=== PATIENT | female | born 1940 | race African-American/Black ===

== ENCOUNTER 2020-09-24 09:42 | Emergency (ER) | payer MEDICARE, MEDICAID ==
[~2020-09-24] VITALS: Ht 167.6 cm; Wt 101.2 kg
[~2020-09-24 09:42] MED LIST: ALBU18HF2 IH; ALLO100T PO; AMI2 PO; APIX2.5T PO; BUDE6HFA INH; FURO40TA5 PO; HYDR-459 PO; LACT1CAP77 PO; LEVO112T7 MT; METR-167 PO; MIDO5TAB4 PO; OXYC-100 MT; PANT40TA51 MT; SEVE800T25 PO; VANJ5 PO
[2020-09-24] MEDS ORDERED: HYDROCODONE/ACETAMINOPHEN 5/325MG TABLET PO ONE (10:45)
[2020-09-24] MEDS ORDERED: KETOROLAC 60MG/2ML VIAL IM ONE (11:45)
[2020-09-24] MEDS ORDERED: ACET650T37 MT (12:19)
[2020-09-24 15:45] LABS: CHLORIDE 105 mEq/L (98-107); HEMOGLOBIN. 11.5 g/dL (12.0-16.0); MEAN CORPUSCULAR HEMOGLOBIN 28.7 pg (28.0-32.0); MEAN CORPUSCULAR VOLUME 82.6 fL (81.0-99.0); MEAN PLATELET VOLUME 8.3 fl (7.4-10.4); PLATELET 229 x1000/uL (130-400)
[2020-09-24 16:07] LABS: PLATELET ESTIMATE NORMAL
[2020-09-24 20:58] VITALS: BP 135/63
== END 2020-09-24 21:10 | disposition short-term general hospital (02) ==
LOC: ER 09:42 → CANBEDREQ 21:26
DX: S83.91XA Sprain of unspecified site of right knee, initial encounter (principal); W05.0XXA Fall from non-moving wheelchair, initial encounter; Y93.89 Activity, other specified; Y92.9 Unspecified place or not applicable; R94.31 Abnormal electrocardiogram [ECG] [EKG]; Z73.6 Limitation of activities due to disability; I12.9 Hypertensive chronic kidney disease with stage 1 through stage 4 chronic kidney disease, or unspecified chronic kidney disease; E11.22 Type 2 diabetes mellitus with diabetic chronic kidney disease; N18.9 Chronic kidney disease, unspecified; J45.909 Unspecified asthma, uncomplicated
CPT/HCPCS: 36415; 71045; 73562; 80053; 82962; 85025; 93005; 96372; 99283; J1885

== ENCOUNTER 2020-11-29 13:11 | Inpatient (IN) | payer MEDICARE, MEDICAID ==
[~2020-11-29] VITALS: Ht 167.6 cm; Wt 108.9 kg
[~2020-11-29 13:11] MED LIST changes: +ACET650T37 MT
[2020-11-29 16:27] LABS: BASOPHILS % 2.7 % (0.0-2.0); EOSINOPHILS % 10.5 % (0.0-5.0); HEMATOCRIT. 35.5 % (36.0-48.0); HEMOGLOBIN. 11.7 g/dL (12.0-16.0); LYMPHOCYTES % 21.3 % (20.0-50.0); MEAN CORPUSCULAR HEMOGLOBIN 29.4 pg (28.0-32.0); MEAN CORPUSCULAR VOLUME 89.3 fL (81.0-99.0); MEAN PLATELET VOLUME 8.1 fl (7.4-10.4); MONOCYTES % 11.2 % (2.0-8.0); NEUTROPHILS % 54.3 % (40.0-76.0); PLATELET 252 x1000/uL (130-400); RED BLOOD CELL COUNT 3.98 mill/uL (4.2-5.4); RED CELL DISTRIBUTION WIDTH 16.6 % (11.6-14.6)
[2020-11-29 16:32] LABS: CHLORIDE 100 mEq/L (98-107)
[2020-11-30] MEDS: HYDROCODONE/ACETAMINOPHEN 5/325MG TABLET PO PRN ×2 (01:12→18:29)
[2020-11-30] MEDS ORDERED: NALOXONE HCL 0.4MG/ML VIAL IV PRN (03:45)
[2020-11-30] MEDS ORDERED: IPRATROPIUM/ALBUTEROL 0.5-3(2.5)MG/3ML NEB HHN PRN (09:15)
[2020-11-30] MEDS ORDERED: ONDANSETRON HCL 4MG/2ML INJ IV PRN (09:15)
[2020-11-30] MEDS ORDERED: CLONIDINE 0.1MG TABLET PO PRN (09:15)
[2020-11-30] MEDS ORDERED: DIPHENHYDRAMINE 50MG/ML VIAL IV PRN (09:15)
[2020-11-30] MEDS ORDERED: ACETAMINOPHEN 325MG TABLET PO PRN (09:15)
[2020-11-30 18:00] VITALS: BP 133/67
[2020-11-30 20:00] VITALS: BP 122/68
[2020-11-30] MEDS ORDERED: PNEUMOCOCCAL 23-VAL P-SAC VAC 0.5 ML IM ONE (21:00)
[2020-12-01] VITALS: BP 110/69
[2020-12-01] MEDS ORDERED: HEPARIN SODIUM 1,000 UNIT/1ML VIAL IV NR (01:30)
[2020-12-01 01:57] LABS: HEPATITIS B SURFACE ANTIGEN NEGATIVE
[2020-12-01 02:27] LABS: HEPATITIS A AB IGM NEGATIVE (NEGATIVE)
[2020-12-01 04:00] VITALS: BP 95/48
[2020-12-01 07:32] LABS: BASOPHILS % 1.3 % (0.0-2.0); EOSINOPHILS % 11.7 % (0.0-5.0); HEMATOCRIT. 39.3 % (36.0-48.0); LYMPHOCYTES % 29.6 % (20.0-50.0); MEAN CORPUSCULAR HEMOGLOBIN 29.1 pg (28.0-32.0); MEAN CORPUSCULAR VOLUME 88.4 fL (81.0-99.0); MONOCYTES % 10.5 % (2.0-8.0); NEUTROPHILS % 46.9 % (40.0-76.0); PLATELET 247 x1000/uL (130-400); RED BLOOD CELL COUNT 4.45 mill/uL (4.2-5.4); RED CELL DISTRIBUTION WIDTH 16.5 % (11.6-14.6)
[2020-12-01 07:55] LABS: CHLORIDE 104 mEq/L (98-107)
[2020-12-01 08:00] VITALS: BP 99/53
[2020-12-01 08:04] LABS: LDL CHOLESTEROL 92 mg/dL (5-100)
[2020-12-01 08:05] LABS: HDL CHOLESTEROL 84 mg/dL (40-59)
[2020-12-01 12:00] VITALS: BP 95/52
[2020-12-01 16:00] VITALS: BP 105/53
[2020-12-01 20:17] VITALS: BP 106/54
[2020-12-01] MEDS: HYDROCODONE/ACETAMINOPHEN 5/325MG TABLET PO PRN (20:31)
[2020-12-02] VITALS (7 sets, daily range): BP systolic 104–157; BP diastolic 51–81
[2020-12-02 05:53] LABS: BASOPHILS % 1.5 % (0.0-2.0); EOSINOPHILS % 14.6 % (0.0-5.0); HEMATOCRIT. 34.9 % (36.0-48.0); HEMOGLOBIN. 11.2 g/dL (12.0-16.0); LYMPHOCYTES % 47.3 % (20.0-50.0); MEAN CORPUSCULAR HEMOGLOBIN 28.9 pg (28.0-32.0); MEAN CORPUSCULAR VOLUME 90.3 fL (81.0-99.0); MEAN PLATELET VOLUME 8.5 fl (7.4-10.4); NEUTROPHILS % 24.6 % (40.0-76.0); PLATELET 256 x1000/uL (130-400); RED BLOOD CELL COUNT 3.86 mill/uL (4.2-5.4)
[2020-12-02] MEDS: HYDROCODONE/ACETAMINOPHEN 5/325MG TABLET PO PRN ×2 (06:09→18:39)
[2020-12-03] VITALS: BP 119/64
[2020-12-03 04:00] VITALS: BP 159/78
[2020-12-03] MEDS: HYDROCODONE/ACETAMINOPHEN 5/325MG TABLET PO PRN ×2 (04:16→14:52)
[2020-12-03 08:00] VITALS: BP 116/91
[2020-12-03 12:00] VITALS: BP 114/60
[2020-12-03 14:52] VITALS: BP 116/91
== END 2020-12-03 15:40 | disposition home or self-care (01) | DRG 205 ==
LOC: ER 13:28 → EDBEDREQ 19:57 → MICUSO 22:07 → 8WST 11-30 16:30
PROVIDERS: ADMIT Internal Medicine; ATTEND Internal Medicine
PROC: 5A1D70Z Performance of Urinary Filtration, Intermittent, Less than 6 Hours Per Day (ICD-10-PCS; principal; 2020-11-30)
PROC: 5A1D70Z Performance of Urinary Filtration, Intermittent, Less than 6 Hours Per Day (ICD-10-PCS; 2020-12-02)
DX: M94.0 Chondrocostal junction syndrome [Tietze] (principal); N18.6 End stage renal disease; L89.323 Pressure ulcer of left buttock, stage 3; E87.1 Hypo-osmolality and hyponatremia; L97.909 Non-pressure chronic ulcer of unspecified part of unspecified lower leg with unspecified severity; I12.0 Hypertensive chronic kidney disease with stage 5 chronic kidney disease or end stage renal disease; R07.89 Other chest pain; D64.9 Anemia, unspecified; J45.909 Unspecified asthma, uncomplicated; Z90.49 Acquired absence of other specified parts of digestive tract; Z99.2 Dependence on renal dialysis; Z86.19 Personal history of other infectious and parasitic diseases; Z79.51 Long term (current) use of inhaled steroids
CPT/HCPCS: 36415; 71045; 80048; 80053; 80061; 82040; 83880; 84132; 84134; 84443; 84484; 85025; 86705; 86709; 86803; 87340; 90732; 93005; 93306; 93970; 99285; J1644

== ENCOUNTER 2021-01-26 04:51 | Inpatient (IN) | payer MEDICARE, MEDICAID ==
[~2021-01-26] VITALS: Ht 167.6 cm; Wt 117.5 kg
[~2021-01-26 04:51] MED LIST changes: -METR-167 PO; -VANJ5 PO
[2021-01-26 05:40] LABS: EOSINOPHILS % 7.6 % (0.0-5.0); HEMATOCRIT. 33.7 % (36.0-48.0); LYMPHOCYTES % 27.7 % (20.0-50.0); MEAN CORPUSCULAR HEMOGLOBIN 28.5 pg (28.0-32.0); MEAN CORPUSCULAR VOLUME 87.3 fL (81.0-99.0); MEAN PLATELET VOLUME 7.2 fl (7.4-10.4); MONOCYTES % 11.4 % (2.0-8.0); NEUTROPHILS % 52.3 % (40.0-76.0); PLATELET 274 x1000/uL (130-400); RED BLOOD CELL COUNT 3.86 mill/uL (4.2-5.4)
[2021-01-26 05:46] LABS: CHLORIDE 97 mEq/L (98-107)
[2021-01-26 06:50] LABS: CLARITY URINE TURBID (CLEAR); COLOR URINE YELLOW (YELLOW); KETONES URINE TRACE (NEGATIVE); LEUKOCYTE ESTERASE URINE 3+ (NEGATIVE); NITRITE URINE NEGATIVE (NEGATIVE); OCCULT BLOOD URINE 2+ (NEGATIVE); PH URINE 5.5 (4.5-8.0); PROTEIN URINE 3+ (NEGATIVE); SPECIFIC GRAVITY URINE 1.015 (1.005-1.030); UROBILINOGEN URINE 0.2 E.U./dL (0.2-1.0)
[2021-01-26] MEDS ORDERED: CEFTRIAXONE 1 G PREMIX 50 ML IV ONE (08:00)
[2021-01-26] MEDS ORDERED: ACETAMINOPHEN 325MG TABLET PO PRN ×2 (13:00)
[2021-01-26] MEDS ORDERED: ONDANSETRON HCL 4MG/2ML INJ IV PRN (13:00)
[2021-01-26] MEDS: SEVELAMER CARBONATE 800 MG TABLET PO SCH ×4 (13:00→18:12)
[2021-01-26] MEDS: MIDODRINE HCL 5MG TABLET PO SCH ×3 (13:00→18:12)
[2021-01-26] MEDS ORDERED: CLONIDINE 0.1MG TABLET PO PRN (13:00)
[2021-01-26] MEDS ORDERED: LORAZEPAM 0.5MG TABLET PO PRN (13:00)
[2021-01-26 13:39] LABS: HEPATITIS B SURFACE ANTIGEN NEGATIVE
[2021-01-26] MEDS: HYDROCODONE/ACETAMINOPHEN 5/325MG TABLET PO PRN ×2 (14:56→20:44)
[2021-01-26] MEDS: AMIODARONE HCL 200 MG TABLET PO SCH (14:58)
[2021-01-26] MEDS: LEVOTHYROXINE SODIUM 112MCG TABLET PO SCH (14:58)
[2021-01-26 17:10] VITALS: BP 124/61
[2021-01-26 17:30] VITALS: BP 124/61
[2021-01-26] MEDS: ALLOPURINOL 100 MG TABLET PO SCH (18:13)
[2021-01-26] MEDS: FUROSEMIDE 40MG TABLET PO SCH (18:13)
[2021-01-26 19:30] VITALS: BP 124/61
[2021-01-26 20:00] VITALS: BP 141/66
[2021-01-26] MEDS: APIXABAN 2.5 MG TABLET PO SCH (20:21)
[2021-01-27] VITALS: BP 120/74
[2021-01-27 04:00] VITALS: BP 143/74
[2021-01-27] MEDS: IPRATROPIUM/ALBUTEROL 0.5-3(2.5)MG/3ML NEB HHN PRN (04:22)
[2021-01-27] MEDS: FUROSEMIDE 40MG TABLET PO SCH ×2 (06:52→17:57)
[2021-01-27] MEDS: SEVELAMER CARBONATE 800 MG TABLET PO SCH ×3 (06:52→17:57)
[2021-01-27] MEDS: PANTOPRAZOLE 40MG DR TABLET PO SCH (06:52)
[2021-01-27] MEDS: LEVOTHYROXINE SODIUM 112MCG TABLET PO SCH (06:52)
[2021-01-27 08:00] VITALS: BP 114/45
[2021-01-27] MEDS: MIDODRINE HCL 5MG TABLET PO SCH ×3 (09:00→17:53)
[2021-01-27] MEDS: LACTOBACILLUS GG CAPSULE PO SCH (09:00)
[2021-01-27] MEDS: ALLOPURINOL 100 MG TABLET PO SCH ×2 (10:12→17:52)
[2021-01-27] MEDS: APIXABAN 2.5 MG TABLET PO SCH ×2 (10:12→19:57)
[2021-01-27] MEDS: AMIODARONE HCL 200 MG TABLET PO SCH (10:13)
[2021-01-27 12:00] VITALS: BP 110/55
[2021-01-27] MEDS: HYDROCODONE/ACETAMINOPHEN 5/325MG TABLET PO PRN ×2 (15:03→20:01)
[2021-01-27 16:00] VITALS: BP 118/53
[2021-01-27 20:00] VITALS: BP 124/65
[2021-01-28] VITALS: BP 119/59
[2021-01-28 04:00] VITALS: BP 104/56
[2021-01-28] MEDS: HYDROCODONE/ACETAMINOPHEN 5/325MG TABLET PO PRN ×3 (05:14→18:09)
[2021-01-28] MEDS: SEVELAMER CARBONATE 800 MG TABLET PO SCH ×3 (06:35→17:51)
[2021-01-28] MEDS: PANTOPRAZOLE 40MG DR TABLET PO SCH (06:35)
[2021-01-28] MEDS: FUROSEMIDE 40MG TABLET PO SCH ×2 (06:35→17:51)
[2021-01-28] MEDS: LEVOTHYROXINE SODIUM 112MCG TABLET PO SCH (06:35)
[2021-01-28 08:00] VITALS: BP 130/60
[2021-01-28] MEDS: MIDODRINE HCL 5MG TABLET PO SCH ×3 (09:00→17:00)
[2021-01-28] MEDS: LACTOBACILLUS GG CAPSULE PO SCH (09:00)
[2021-01-28] MEDS: APIXABAN 2.5 MG TABLET PO SCH ×2 (09:19→21:00)
[2021-01-28] MEDS: AMIODARONE HCL 200 MG TABLET PO SCH (09:19)
[2021-01-28] MEDS: ALLOPURINOL 100 MG TABLET PO SCH ×2 (09:19→17:51)
[2021-01-28 12:00] VITALS: BP 112/56
[2021-01-28] MEDS ORDERED: DEXTROSE 50% WATER 50ML SYRINGE IV PRN (13:30)
[2021-01-28 16:00] VITALS: BP 121/57
[2021-01-28] MEDS: INSULIN LISPRO 100 UNITS/ML SUBCUT SCH ×2 (17:40→21:00)
[2021-01-28] MEDS: BLOOD SUGAR DIAGNOSTIC STRIP TEST SCH ×2 (18:02→21:00)
[2021-01-28 20:00] VITALS: BP 143/72
[2021-01-29] VITALS (8 sets, daily range): BP systolic 100–176; BP diastolic 44–73
[2021-01-29 06:49] LABS: BASOPHILS % 1.1 % (0.0-2.0); EOSINOPHILS % 8.8 % (0.0-5.0); HEMATOCRIT. 31.1 % (36.0-48.0); HEMOGLOBIN. 10.3 g/dL (12.0-16.0); LYMPHOCYTES % 29.2 % (20.0-50.0); MEAN CORPUSCULAR HEMOGLOBIN 28.7 pg (28.0-32.0); MEAN CORPUSCULAR VOLUME 86.7 fL (81.0-99.0); MONOCYTES % 12.5 % (2.0-8.0); NEUTROPHILS % 48.4 % (40.0-76.0); PLATELET 281 x1000/uL (130-400); RED BLOOD CELL COUNT 3.59 mill/uL (4.2-5.4)
[2021-01-29] MEDS: FUROSEMIDE 40MG TABLET PO SCH ×2 (06:54→17:55)
[2021-01-29] MEDS: LEVOTHYROXINE SODIUM 112MCG TABLET PO SCH (06:54)
[2021-01-29] MEDS: HYDROXYZINE 25MG TABLET PO PRN ×2 (06:59→22:38)
[2021-01-29] MEDS: INSULIN LISPRO 100 UNITS/ML SUBCUT SCH ×4 (07:40→20:44)
[2021-01-29] MEDS: BLOOD SUGAR DIAGNOSTIC STRIP TEST SCH ×4 (07:52→20:02)
[2021-01-29] MEDS: FAMOTIDINE 20MG TABLET PO SCH (08:34)
[2021-01-29] MEDS: SEVELAMER CARBONATE 800 MG TABLET PO SCH ×3 (08:34→17:55)
[2021-01-29] MEDS: APIXABAN 2.5 MG TABLET PO SCH (08:34)
[2021-01-29] MEDS: ALLOPURINOL 100 MG TABLET PO SCH ×2 (08:34→17:55)
[2021-01-29] MEDS: MIDODRINE HCL 5MG TABLET PO SCH ×3 (08:34→17:55)
[2021-01-29] MEDS: AMIODARONE HCL 200 MG TABLET PO SCH (08:34)
[2021-01-29] MEDS: LACTOBACILLUS GG CAPSULE PO SCH (08:52)
[2021-01-29] MEDS: HYDROCODONE/ACETAMINOPHEN 5/325MG TABLET PO PRN ×2 (13:25→22:43)
[2021-01-29] MEDS: CEFAZOLIN 1000MG PREMIX 50 ML IV SCH (22:33)
[2021-01-30] VITALS: BP 122/80
[2021-01-30 04:00] VITALS: BP 100/51
[2021-01-30] MEDS: BLOOD SUGAR DIAGNOSTIC STRIP TEST SCH ×4 (04:57→21:00)
[2021-01-30] MEDS: LEVOTHYROXINE SODIUM 112MCG TABLET PO SCH (05:17)
[2021-01-30] MEDS: INSULIN LISPRO 100 UNITS/ML SUBCUT SCH ×4 (05:18→21:00)
[2021-01-30 05:35] LABS: EOSINOPHILS % 9.2 % (0.0-5.0); HEMATOCRIT. 31.9 % (36.0-48.0); HEMOGLOBIN. 10.5 g/dL (12.0-16.0); LYMPHOCYTES % 31.1 % (20.0-50.0); MEAN CORPUSCULAR HEMOGLOBIN 28.5 pg (28.0-32.0); MONOCYTES % 13.8 % (2.0-8.0); NEUTROPHILS % 43.9 % (40.0-76.0); PLATELET 261 x1000/uL (130-400); RED BLOOD CELL COUNT 3.71 mill/uL (4.2-5.4); RED CELL DISTRIBUTION WIDTH 14.9 % (11.6-14.6)
[2021-01-30 06:30] LABS: CHLORIDE 103 mEq/L (98-107)
[2021-01-30 06:48] LABS: LDL CHOLESTEROL 54 mg/dL (5-100)
[2021-01-30 06:51] LABS: HDL CHOLESTEROL 53 mg/dL (40-59)
[2021-01-30 08:00] VITALS: BP 112/58
[2021-01-30] MEDS: MIDODRINE HCL 5MG TABLET PO SCH ×3 (09:00→18:39)
[2021-01-30] MEDS: LACTOBACILLUS GG CAPSULE PO SCH (09:00)
[2021-01-30] MEDS: SEVELAMER CARBONATE 800 MG TABLET PO SCH ×3 (09:08→18:38)
[2021-01-30] MEDS: FUROSEMIDE 40MG TABLET PO SCH ×2 (09:08→18:38)
[2021-01-30] MEDS: FAMOTIDINE 20MG TABLET PO SCH (09:09)
[2021-01-30] MEDS: HYDROCODONE/ACETAMINOPHEN 5/325MG TABLET PO PRN ×2 (09:09→18:49)
[2021-01-30] MEDS: ALLOPURINOL 100 MG TABLET PO SCH ×2 (09:12→18:38)
[2021-01-30] MEDS: AMIODARONE HCL 200 MG TABLET PO SCH (09:16)
[2021-01-30 12:00] VITALS: BP 108/60
[2021-01-30 16:00] VITALS: BP 130/63
[2021-01-30] MEDS ORDERED: IOHEXOL-350 100 ML BOTTLE ONE (17:21)
[2021-01-30] MEDS: APIXABAN 2.5 MG TABLET PO SCH (18:38)
[2021-01-30] MEDS: CEFAZOLIN 1000MG PREMIX 50 ML IV SCH (18:49)
[2021-01-30 20:00] VITALS: BP 151/71
[2021-01-30] MEDS ORDERED: NALOXONE HCL 0.4MG/ML VIAL IV PRN (20:00)
[2021-01-31] VITALS: BP 119/58
[2021-01-31 04:00] VITALS: BP 125/68
[2021-01-31 07:06] LABS: BASOPHILS % 0.4 % (0.0-2.0); EOSINOPHILS % 8.8 % (0.0-5.0); HEMATOCRIT. 31.8 % (36.0-48.0); HEMOGLOBIN. 10.6 g/dL (12.0-16.0); LYMPHOCYTES % 34.7 % (20.0-50.0); MEAN CORPUSCULAR HEMOGLOBIN 28.7 pg (28.0-32.0); MEAN CORPUSCULAR VOLUME 86.4 fL (81.0-99.0); MEAN PLATELET VOLUME 7.9 fl (7.4-10.4); MONOCYTES % 12.5 % (2.0-8.0); NEUTROPHILS % 43.6 % (40.0-76.0); PLATELET 288 x1000/uL (130-400); RED BLOOD CELL COUNT 3.68 mill/uL (4.2-5.4); RED CELL DISTRIBUTION WIDTH 15.3 % (11.6-14.6)
[2021-01-31] MEDS: BLOOD SUGAR DIAGNOSTIC STRIP TEST SCH ×4 (07:20→21:00)
[2021-01-31] MEDS: INSULIN LISPRO 100 UNITS/ML SUBCUT SCH ×4 (07:50→21:00)
[2021-01-31 08:00] VITALS: BP 131/71
[2021-01-31] MEDS: FUROSEMIDE 40MG TABLET PO SCH ×2 (09:01→18:10)
[2021-01-31] MEDS: LEVOTHYROXINE SODIUM 112MCG TABLET PO SCH (09:01)
[2021-01-31] MEDS: SEVELAMER CARBONATE 800 MG TABLET PO SCH ×3 (09:02→18:11)
[2021-01-31] MEDS: HYDROCODONE/ACETAMINOPHEN 5/325MG TABLET PO PRN (09:12)
[2021-01-31] MEDS: LACTOBACILLUS GG CAPSULE PO SCH (11:37)
[2021-01-31] MEDS: AMIODARONE HCL 200 MG TABLET PO SCH (11:38)
[2021-01-31] MEDS: APIXABAN 2.5 MG TABLET PO SCH ×2 (11:38→18:09)
[2021-01-31] MEDS: FAMOTIDINE 20MG TABLET PO SCH (11:38)
[2021-01-31] MEDS: MIDODRINE HCL 5MG TABLET PO SCH ×3 (11:39→18:10)
[2021-01-31] MEDS: HYDROXYZINE 25MG TABLET PO PRN (11:40)
[2021-01-31] MEDS: ALLOPURINOL 100 MG TABLET PO SCH ×2 (11:40→18:10)
[2021-01-31 12:00] VITALS: BP 118/64
[2021-01-31 16:00] VITALS: BP 146/67
[2021-01-31] MEDS: CEFAZOLIN 1000MG PREMIX 50 ML IV SCH (18:11)
[2021-01-31] MEDS: DOCUSATE SODIUM 100MG CAPSULE PO PRN (18:12)
[2021-01-31 20:00] VITALS: BP 128/71
[2021-02-01] VITALS: BP 124/63
[2021-02-01 04:00] VITALS: BP 102/54
[2021-02-01] MEDS: HYDROCODONE/ACETAMINOPHEN 5/325MG TABLET PO PRN ×2 (05:13→14:07)
[2021-02-01] MEDS: LEVOTHYROXINE SODIUM 112MCG TABLET PO SCH (06:22)
[2021-02-01] MEDS: FUROSEMIDE 40MG TABLET PO SCH ×2 (06:23→17:05)
[2021-02-01] MEDS: BLOOD SUGAR DIAGNOSTIC STRIP TEST SCH ×4 (06:27→20:58)
[2021-02-01 07:25] LABS: BASOPHILS % 0.7 % (0.0-2.0); EOSINOPHILS % 8.7 % (0.0-5.0); HEMATOCRIT. 33.5 % (36.0-48.0); LYMPHOCYTES % 30.4 % (20.0-50.0); MEAN CORPUSCULAR HEMOGLOBIN 28.5 pg (28.0-32.0); MEAN CORPUSCULAR VOLUME 86.7 fL (81.0-99.0); MONOCYTES % 12.9 % (2.0-8.0); NEUTROPHILS % 47.3 % (40.0-76.0); PLATELET 251 x1000/uL (130-400); RED BLOOD CELL COUNT 3.86 mill/uL (4.2-5.4); RED CELL DISTRIBUTION WIDTH 15.6 % (11.6-14.6)
[2021-02-01] MEDS: INSULIN LISPRO 100 UNITS/ML SUBCUT SCH ×4 (07:50→20:58)
[2021-02-01 08:02] VITALS: BP 120/52
[2021-02-01] MEDS: AMIODARONE HCL 200 MG TABLET PO SCH (08:18)
[2021-02-01] MEDS: FAMOTIDINE 20MG TABLET PO SCH (08:18)
[2021-02-01] MEDS: LACTOBACILLUS GG CAPSULE PO SCH (08:18)
[2021-02-01] MEDS: APIXABAN 2.5 MG TABLET PO SCH ×2 (08:18→17:02)
[2021-02-01] MEDS: MIDODRINE HCL 5MG TABLET PO SCH ×3 (08:19→17:05)
[2021-02-01] MEDS: ALLOPURINOL 100 MG TABLET PO SCH ×2 (08:19→17:05)
[2021-02-01] MEDS: DOCUSATE SODIUM 100MG CAPSULE PO PRN ×2 (08:20→14:05)
[2021-02-01] MEDS: SEVELAMER CARBONATE 800 MG TABLET PO SCH ×3 (09:59→18:31)
[2021-02-01] MEDS ORDERED: LORATADINE 10MG TABLET PO PRN (10:15)
[2021-02-01] MEDS: IPRATROPIUM/ALBUTEROL 0.5-3(2.5)MG/3ML NEB HHN PRN (10:36)
[2021-02-01 11:43] VITALS: BP 133/52
[2021-02-01 16:06] VITALS: BP 121/52
[2021-02-01] MEDS: CEFAZOLIN 1000MG PREMIX 50 ML IV SCH (17:06)
[2021-02-01 20:00] VITALS: BP 144/66
[2021-02-02] VITALS: BP 154/65
[2021-02-02 04:00] VITALS: BP 133/70
[2021-02-02 04:51] LABS: BASOPHILS % 1.3 % (0.0-2.0); EOSINOPHILS % 9.3 % (0.0-5.0); HEMATOCRIT. 35.7 % (36.0-48.0); HEMOGLOBIN. 11.7 g/dL (12.0-16.0); LYMPHOCYTES % 31.6 % (20.0-50.0); MEAN CORPUSCULAR HEMOGLOBIN 28.6 pg (28.0-32.0); MONOCYTES % 11.5 % (2.0-8.0); NEUTROPHILS % 46.3 % (40.0-76.0); RED CELL DISTRIBUTION WIDTH 15.8 % (11.6-14.6)
[2021-02-02] MEDS: HYDROCODONE/ACETAMINOPHEN 5/325MG TABLET PO PRN ×2 (04:55→15:45)
[2021-02-02] MEDS: FUROSEMIDE 40MG TABLET PO SCH (06:29)
[2021-02-02] MEDS: LEVOTHYROXINE SODIUM 112MCG TABLET PO SCH (06:29)
[2021-02-02] MEDS: BLOOD SUGAR DIAGNOSTIC STRIP TEST SCH ×3 (07:20→17:20)
[2021-02-02] MEDS: INSULIN LISPRO 100 UNITS/ML SUBCUT SCH ×3 (07:50→17:50)
[2021-02-02 08:00] VITALS: BP 129/59
[2021-02-02] MEDS: SEVELAMER CARBONATE 800 MG TABLET PO SCH ×3 (08:50→18:00)
[2021-02-02] MEDS: LACTOBACILLUS GG CAPSULE PO SCH (08:50)
[2021-02-02] MEDS: APIXABAN 2.5 MG TABLET PO SCH ×2 (08:50→18:00)
[2021-02-02] MEDS: AMIODARONE HCL 200 MG TABLET PO SCH (08:51)
[2021-02-02] MEDS: FAMOTIDINE 20MG TABLET PO SCH (08:51)
[2021-02-02] MEDS: ALLOPURINOL 100 MG TABLET PO SCH ×2 (08:52→18:00)
[2021-02-02] MEDS: MIDODRINE HCL 5MG TABLET PO SCH ×3 (08:52→18:00)
[2021-02-02] MEDS: DOCUSATE SODIUM 100MG CAPSULE PO PRN (08:52)
[2021-02-02 10:41] LABS: CHLORIDE 102 mEq/L (98-107)
[2021-02-02 12:09] VITALS: BP 159/75
[2021-02-02] MEDS ORDERED: HEPARIN SODIUM 1,000 UNIT/1ML VIAL IV SCH (13:00)
[2021-02-02 16:00] VITALS: BP 110/61
[2021-02-02 17:07] LABS: MEAN PLATELET VOLUME 8.2 fl (7.4-10.4); PLATELET 280 x1000/uL (130-400)
[2021-02-02] MEDS: CEFAZOLIN 1000MG PREMIX 50 ML IV SCH (18:00)
[2021-02-02 18:35] VITALS: BP 110/61
== END 2021-02-02 20:09 | disposition home health service (06) | DRG 638 ==
LOC: ER 04:51 → 8WST 10:56 → EDBEDREQTM 11:01 → EDBEDREQ 11:01 → ENRESERV 16:40 → 6EST 01-30 11:25
PROVIDERS: ADMIT Internal Medicine; ATTEND Internal Medicine
PROC: 5A1D70Z Performance of Urinary Filtration, Intermittent, Less than 6 Hours Per Day (ICD-10-PCS; principal; 2021-01-27)
PROC: 5A1D70Z Performance of Urinary Filtration, Intermittent, Less than 6 Hours Per Day (ICD-10-PCS; 2021-01-29)
PROC: 5A1D70Z Performance of Urinary Filtration, Intermittent, Less than 6 Hours Per Day (ICD-10-PCS; 2021-01-30)
PROC: 5A1D70Z Performance of Urinary Filtration, Intermittent, Less than 6 Hours Per Day (ICD-10-PCS; 2021-02-02)
DX: E11.621 Type 2 diabetes mellitus with foot ulcer (principal); I12.0 Hypertensive chronic kidney disease with stage 5 chronic kidney disease or end stage renal disease; E44.0 Moderate protein-calorie malnutrition; Z68.41 Body mass index [BMI] 40.0-44.9, adult; N39.0 Urinary tract infection, site not specified; I31.3 Pericardial effusion (noninflammatory); D64.9 Anemia, unspecified; D72.10 Eosinophilia, unspecified; E03.9 Hypothyroidism, unspecified; E11.22 Type 2 diabetes mellitus with diabetic chronic kidney disease; N18.6 End stage renal disease; J45.909 Unspecified asthma, uncomplicated; B96.1 Klebsiella pneumoniae [K. pneumoniae] as the cause of diseases classified elsewhere; I87.2 Venous insufficiency (chronic) (peripheral); E11.51 Type 2 diabetes mellitus with diabetic peripheral angiopathy without gangrene; E78.5 Hyperlipidemia, unspecified; I08.1 Rheumatic disorders of both mitral and tricuspid valves; I48.0 Paroxysmal atrial fibrillation; E87.5 Hyperkalemia; M62.50 Muscle wasting and atrophy, not elsewhere classified, unspecified site; E66.01 Morbid (severe) obesity due to excess calories; L97.529 Non-pressure chronic ulcer of other part of left foot with unspecified severity; L97.519 Non-pressure chronic ulcer of other part of right foot with unspecified severity; I70.245 Atherosclerosis of native arteries of left leg with ulceration of other part of foot; I25.2 Old myocardial infarction; Z99.2 Dependence on renal dialysis; Z79.899 Other long term (current) drug therapy; Z79.01 Long term (current) use of anticoagulants; Z90.49 Acquired absence of other specified parts of digestive tract; Z79.51 Long term (current) use of inhaled steroids
CPT/HCPCS: 36415; 71045; 75635; 80048; 80053; 80061; 80076; 81003; 82962; 83735; 84439; 84443; 84481; 84484; 85025; 86705; 86709; 86803; 87077; 87186; 87340; 93005; 94640; 97162; 99285; J0690; J0696; J7040; Q9967

== ENCOUNTER 2021-02-20 11:07 | Inpatient (IN) | payer MEDICARE, MEDICAID ==
[~2021-02-20] VITALS: Ht 167.6 cm; Wt 116.6 kg
[~2021-02-20 11:07] MED LIST changes: -FURO40TA5 PO
[2021-02-20] MEDS ORDERED: CLINDAMYCIN 600 MG in DEXTROSE 5% WATER 50 ML IV ONE (12:00)
[2021-02-20 12:14] LABS: BASOPHILS % 0.7 % (0.0-2.0); EOSINOPHILS % 8.1 % (0.0-5.0); HEMATOCRIT. 38.7 % (36.0-48.0); HEMOGLOBIN. 12.3 g/dL (12.0-16.0); LYMPHOCYTES % 25.8 % (20.0-50.0); MEAN CORPUSCULAR HEMOGLOBIN 28.1 pg (28.0-32.0); MEAN CORPUSCULAR VOLUME 88.6 fL (81.0-99.0); MEAN PLATELET VOLUME 7.1 fl (7.4-10.4); MONOCYTES % 12.1 % (2.0-8.0); NEUTROPHILS % 53.3 % (40.0-76.0); PLATELET 267 x1000/uL (130-400); RED BLOOD CELL COUNT 4.37 mill/uL (4.2-5.4)
[2021-02-20] MEDS ORDERED: CLINDAMYCIN 600MG PREMIX 50 ML IV SCH (12:15)
[2021-02-20 12:20] LABS: CHLORIDE 95 mEq/L (98-107)
[2021-02-20 12:31] LABS: BG BASE EXCESS 3.1 mmol/L (-2.0-2.0); BG CARBOXYHEMOGLOBIN 1.3 % (0.5-1.5); BG DEOXYHEMOGLOBIN 3.3 % (0.0-5.0); BG FRACTION INSPIRED OXYGEN 21; BG HCO3 ACT 27.8 mmol/L (22.0-26.0); BG METHEMOGLOBIN 0.3 % (0.0-1.5); BG OXYGEN SATURATION 96.6 % (92.0-98.5); BG OXYHEMOGLOBIN 95.1 % (94.0-97.0); BG PH 7.429 (7.350-7.450); BG SAMPLE SITE RIGHT RADIAL; BG TOTAL HEMOGLOBIN 11.9 g/dL (12.0-18.0); BG VENT MODE ROOM AIR
[2021-02-20 15:15] VITALS: BP 120/63
[2021-02-20] MEDS ORDERED: MORPHINE SULFATE 4 MG/ML CPJ (NOT FOR IM USE) IV ONE (16:00)
[2021-02-20 20:00] VITALS: BP 99/54
[2021-02-20] MEDS ORDERED: VANCOMYCIN 2,000 MG in DEXT 5% WATER 500 ML IV SCH (20:00)
[2021-02-20] MEDS: PIPERACILLIN/TAZOBACTAM 3.375 G in DEXTROSE 5% WATER 50 ML IV SCH (21:00)
[2021-02-20] MEDS ORDERED: SODIUM POLYSTYRENE SULFONATE 15 G/60 ML BOT PO SCH (21:00)
[2021-02-20] MEDS ORDERED: DEXTROSE 50% WATER 50ML SYRINGE IV PRN (22:30)
[2021-02-20] MEDS ORDERED: ALBUTEROL (0.083%) 2.5MG/3ML NEB HHN PRN (22:45)
[2021-02-21] VITALS (7 sets, daily range): BP systolic 99–127; BP diastolic 49–62
[2021-02-21] MEDS: OXYCODONE HCL/ACETAMINOPHEN 5/325MG TABLET PO PRN (01:13)
[2021-02-21] MEDS: PANTOPRAZOLE 40MG DR TABLET PO SCH (06:54)
[2021-02-21] MEDS: BLOOD SUGAR DIAGNOSTIC STRIP TEST SCH ×4 (06:55→20:40)
[2021-02-21] MEDS: LEVOTHYROXINE SODIUM 112MCG TABLET PO SCH (06:55)
[2021-02-21] MEDS: INSULIN LISPRO 100 UNITS/ML SUBCUT SCH ×4 (07:07→20:38)
[2021-02-21] MEDS: AMIODARONE HCL 200 MG TABLET PO SCH (09:43)
[2021-02-21] MEDS: ALLOPURINOL 100 MG TABLET PO SCH (09:43)
[2021-02-21] MEDS: PIPERACILLIN/TAZOBACTAM 3.375 G in DEXTROSE 5% WATER 50 ML IV SCH ×2 (09:44→20:40)
[2021-02-21] MEDS: ACETAMINOPHEN 325MG TABLET PO PRN (09:44)
[2021-02-21] MEDS: APIXABAN 2.5 MG TABLET PO SCH ×2 (09:44→17:31)
[2021-02-21] MEDS: SEVELAMER CARBONATE 800 MG TABLET PO SCH ×2 (12:59→17:32)
[2021-02-21] MEDS ORDERED: NALOXONE HCL 0.4MG/ML VIAL IV PRN (13:30)
[2021-02-21 17:54] LABS: HEPATITIS B SURFACE ANTIGEN NEGATIVE
[2021-02-22] VITALS: BP 132/56
[2021-02-22 04:00] VITALS: BP_SYST 100; BP_SYST 96; BP_DIAS 49; BP_DIAS 55
[2021-02-22] MEDS: OXYCODONE HCL/ACETAMINOPHEN 5/325MG TABLET PO PRN ×2 (05:01→21:35)
[2021-02-22] MEDS: PANTOPRAZOLE 40MG DR TABLET PO SCH (06:26)
[2021-02-22] MEDS: BLOOD SUGAR DIAGNOSTIC STRIP TEST SCH ×4 (06:26→21:00)
[2021-02-22] MEDS: LEVOTHYROXINE SODIUM 112MCG TABLET PO SCH (06:26)
[2021-02-22] MEDS: INSULIN LISPRO 100 UNITS/ML SUBCUT SCH ×4 (06:30→21:00)
[2021-02-22 08:00] VITALS: BP 102/43
[2021-02-22] MEDS: AMIODARONE HCL 200 MG TABLET PO SCH (09:00)
[2021-02-22] MEDS: SEVELAMER CARBONATE 800 MG TABLET PO SCH ×2 (09:00→17:28)
[2021-02-22] MEDS: ALLOPURINOL 100 MG TABLET PO SCH (09:01)
[2021-02-22] MEDS: PIPERACILLIN/TAZOBACTAM 3.375 G in DEXTROSE 5% WATER 50 ML IV SCH ×2 (09:01→21:33)
[2021-02-22] MEDS: APIXABAN 2.5 MG TABLET PO SCH ×2 (09:02→17:29)
[2021-02-22] MEDS: ACETAMINOPHEN 325MG TABLET PO PRN ×2 (09:08→17:04)
[2021-02-22 10:09] LABS: BASOPHILS % 0.5 % (0.0-2.0); EOSINOPHILS % 10.6 % (0.0-5.0); HEMATOCRIT. 33.2 % (36.0-48.0); HEMOGLOBIN. 10.5 g/dL (12.0-16.0); LYMPHOCYTES % 27.9 % (20.0-50.0); MEAN CORPUSCULAR HEMOGLOBIN 27.7 pg (28.0-32.0); MEAN CORPUSCULAR VOLUME 87.1 fL (81.0-99.0); MEAN PLATELET VOLUME 7.4 fl (7.4-10.4); MONOCYTES % 13.1 % (2.0-8.0); NEUTROPHILS % 47.9 % (40.0-76.0); PLATELET 238 x1000/uL (130-400); RED BLOOD CELL COUNT 3.81 mill/uL (4.2-5.4); RED CELL DISTRIBUTION WIDTH 16.8 % (11.6-14.6)
[2021-02-22 12:00] VITALS: BP 94/44
[2021-02-22 16:00] VITALS: BP 96/54
[2021-02-22 20:00] VITALS: BP 108/54
[2021-02-23 00:05] VITALS: BP 114/55
[2021-02-23 04:00] VITALS: BP 97/59
[2021-02-23] MEDS: LEVOTHYROXINE SODIUM 112MCG TABLET PO SCH (06:45)
[2021-02-23] MEDS: BLOOD SUGAR DIAGNOSTIC STRIP TEST SCH ×4 (06:45→20:44)
[2021-02-23] MEDS: ACETAMINOPHEN 325MG TABLET PO PRN ×2 (06:56→16:12)
[2021-02-23 07:17] LABS: EOSINOPHILS % 13.2 % (0.0-5.0); HEMATOCRIT. 32.6 % (36.0-48.0); HEMOGLOBIN. 10.5 g/dL (12.0-16.0); LYMPHOCYTES % 38.6 % (20.0-50.0); MEAN CORPUSCULAR HEMOGLOBIN 28.1 pg (28.0-32.0); MEAN CORPUSCULAR VOLUME 86.9 fL (81.0-99.0); MEAN PLATELET VOLUME 7.4 fl (7.4-10.4); MONOCYTES % 13.8 % (2.0-8.0); NEUTROPHILS % 33.4 % (40.0-76.0); PLATELET 236 x1000/uL (130-400); RED BLOOD CELL COUNT 3.75 mill/uL (4.2-5.4); RED CELL DISTRIBUTION WIDTH 16.2 % (11.6-14.6)
[2021-02-23] MEDS: INSULIN LISPRO 100 UNITS/ML SUBCUT SCH ×4 (07:50→20:44)
[2021-02-23 08:00] VITALS: BP 98/47
[2021-02-23] MEDS: PIPERACILLIN/TAZOBACTAM 3.375 G in DEXTROSE 5% WATER 50 ML IV SCH ×2 (08:44→20:44)
[2021-02-23] MEDS: APIXABAN 2.5 MG TABLET PO SCH ×2 (08:44→17:56)
[2021-02-23] MEDS: ALLOPURINOL 100 MG TABLET PO SCH (08:44)
[2021-02-23] MEDS: FAMOTIDINE 20MG TABLET PO SCH (08:44)
[2021-02-23] MEDS: SEVELAMER CARBONATE 800 MG TABLET PO SCH ×2 (08:44→17:56)
[2021-02-23] MEDS: AMIODARONE HCL 200 MG TABLET PO SCH (08:45)
[2021-02-23 12:00] VITALS: BP 102/60
[2021-02-23] MEDS: OXYCODONE HCL/ACETAMINOPHEN 5/325MG TABLET PO PRN ×2 (12:36→23:51)
[2021-02-23 16:00] VITALS: BP 111/64
[2021-02-23] MEDS ORDERED: PROT40 PO (16:33)
[2021-02-23] MEDS ORDERED: FURO-152 PO (16:33)
[2021-02-23] MEDS ORDERED: IBUP-2437 PO (16:33)
[2021-02-23] MEDS ORDERED: TOPUD MT (16:33)
[2021-02-23] MEDS ORDERED: ALBU6.7H9 INH (16:33)
[2021-02-23] MEDS ORDERED: LEVO100T9 PO (16:33)
[2021-02-23] MEDS ORDERED: SEVE800T8 PO (16:33)
[2021-02-23 20:00] VITALS: BP 104/49
[2021-02-24] VITALS (7 sets, daily range): BP systolic 100–129; BP diastolic 48–71
[2021-02-24] MEDS: LEVOTHYROXINE SODIUM 112MCG TABLET PO SCH (06:43)
[2021-02-24 07:02] LABS: BASOPHILS % 0.8 % (0.0-2.0); EOSINOPHILS % 12.6 % (0.0-5.0); HEMATOCRIT. 32.5 % (36.0-48.0); HEMOGLOBIN. 10.6 g/dL (12.0-16.0); LYMPHOCYTES % 35.6 % (20.0-50.0); MEAN CORPUSCULAR HEMOGLOBIN 28.7 pg (28.0-32.0); MEAN CORPUSCULAR VOLUME 87.4 fL (81.0-99.0); MEAN PLATELET VOLUME 7.5 fl (7.4-10.4); MONOCYTES % 12.9 % (2.0-8.0); NEUTROPHILS % 38.1 % (40.0-76.0); PLATELET 250 x1000/uL (130-400); RED BLOOD CELL COUNT 3.71 mill/uL (4.2-5.4); RED CELL DISTRIBUTION WIDTH 16.1 % (11.6-14.6)
[2021-02-24] MEDS: BLOOD SUGAR DIAGNOSTIC STRIP TEST SCH ×4 (07:29→20:06)
[2021-02-24] MEDS: INSULIN LISPRO 100 UNITS/ML SUBCUT SCH ×4 (07:50→20:06)
[2021-02-24] MEDS: SEVELAMER CARBONATE 800 MG TABLET PO SCH ×2 (07:50→17:53)
[2021-02-24] MEDS: ALLOPURINOL 100 MG TABLET PO SCH (09:00)
[2021-02-24] MEDS: PIPERACILLIN/TAZOBACTAM 3.375 G in DEXTROSE 5% WATER 50 ML IV SCH ×2 (09:00→20:06)
[2021-02-24] MEDS: AMIODARONE HCL 200 MG TABLET PO SCH (09:00)
[2021-02-24] MEDS: FAMOTIDINE 20MG TABLET PO SCH (09:00)
[2021-02-24] MEDS: APIXABAN 2.5 MG TABLET PO SCH ×2 (09:00→17:00)
[2021-02-24] MEDS ORDERED: HEPARIN 1000 UNITS/ML 10ML ONE (09:24)
[2021-02-24] MEDS ORDERED: IODIXANOL 320MG/ML 100 ML BOTTLE IV ONE (09:25)
[2021-02-24] MEDS ORDERED: LIDOCAINE HCL 1% 20ML VIAL (Pyxis) INJ ONE (09:25)
[2021-02-24] MEDS ORDERED: FENTANYL CITRATE/PF 50MCG/ML 2ML VIAL ONE (09:59)
[2021-02-24] MEDS ORDERED: MIDAZOLAM HCL 2 MG/2 ML VIAL ONE (09:59)
[2021-02-24] MEDS ORDERED: FENTANYL CITRATE/PF 50MCG/ML 5ML VIAL ONE ×2 (10:00→11:03)
[2021-02-24] MEDS ORDERED: MIDAZOLAM HCL 5 MG/5 ML VIAL ONE ×2 (10:00→11:03)
[2021-02-24] MEDS: OXYCODONE HCL/ACETAMINOPHEN 5/325MG TABLET PO PRN (11:10)
[2021-02-24] MEDS ORDERED: VANCOMYCIN 750 MG PREMIX 150 ML IV NR (17:00)
[2021-02-24] MEDS: ACETAMINOPHEN 325MG TABLET PO PRN (20:06)
[2021-02-24] MEDS: HYDROXYZINE 25MG TABLET PO PRN (20:06)
[2021-02-25] VITALS: BP 101/53
[2021-02-25] MEDS: HYDROXYZINE 25MG TABLET PO PRN ×2 (03:32→11:15)
[2021-02-25] MEDS: OXYCODONE HCL/ACETAMINOPHEN 5/325MG TABLET PO PRN ×2 (03:39→12:27)
[2021-02-25 04:00] VITALS: BP 111/54
[2021-02-25] MEDS: BLOOD SUGAR DIAGNOSTIC STRIP TEST SCH ×2 (06:30→13:07)
[2021-02-25] MEDS: LEVOTHYROXINE SODIUM 112MCG TABLET PO SCH (06:30)
[2021-02-25] MEDS: INSULIN LISPRO 100 UNITS/ML SUBCUT SCH ×2 (07:50→12:50)
[2021-02-25 08:00] VITALS: BP 93/51
[2021-02-25] MEDS: AMIODARONE HCL 200 MG TABLET PO SCH (08:43)
[2021-02-25] MEDS: ALLOPURINOL 100 MG TABLET PO SCH (08:43)
[2021-02-25] MEDS: APIXABAN 2.5 MG TABLET PO SCH (08:43)
[2021-02-25] MEDS: SEVELAMER CARBONATE 800 MG TABLET PO SCH (08:43)
[2021-02-25] MEDS: PIPERACILLIN/TAZOBACTAM 3.375 G in DEXTROSE 5% WATER 50 ML IV SCH (08:44)
[2021-02-25] MEDS: FAMOTIDINE 20MG TABLET PO SCH (08:44)
[2021-02-25] MEDS: ACETAMINOPHEN 325MG TABLET PO PRN (08:51)
[2021-02-25 12:00] VITALS: BP 109/54
[2021-02-25 16:00] VITALS: BP 113/62
[2021-02-25 16:27] VITALS: BP 113/62
[2021-02-25] MEDS ORDERED: SODIUM HYPOCHLORITE 0.125% 473ML SOLUTION TOP SCH (17:00)
== END 2021-02-25 17:22 | disposition home health service (06) | DRG 602 ==
LOC: ER 11:07 → 6EST 16:17 → EDBEDREQTM 16:32 → EDBEDREQ 16:32 → ENRESERV 16:35
PROVIDERS: ADMIT Internal Medicine; ATTEND Internal Medicine
PROC: 5A1D70Z Performance of Urinary Filtration, Intermittent, Less than 6 Hours Per Day (ICD-10-PCS; 2021-02-21)
PROC: B41G1ZZ Fluoroscopy of Left Lower Extremity Arteries using Low Osmolar Contrast (ICD-10-PCS; principal; 2021-02-24)
PROC: B41F1ZZ Fluoroscopy of Right Lower Extremity Arteries using Low Osmolar Contrast (ICD-10-PCS; 2021-02-24)
PROC: 5A1D70Z Performance of Urinary Filtration, Intermittent, Less than 6 Hours Per Day (ICD-10-PCS; 2021-02-24)
DX: L03.115 Cellulitis of right lower limb (principal); N18.6 End stage renal disease; E44.0 Moderate protein-calorie malnutrition; E87.1 Hypo-osmolality and hyponatremia; I13.2 Hypertensive heart and chronic kidney disease with heart failure and with stage 5 chronic kidney disease, or end stage renal disease; Z68.41 Body mass index [BMI] 40.0-44.9, adult; D64.9 Anemia, unspecified; I25.10 Atherosclerotic heart disease of native coronary artery without angina pectoris; Z20.822 Contact with and (suspected) exposure to COVID-19; I50.9 Heart failure, unspecified; E03.9 Hypothyroidism, unspecified; E11.51 Type 2 diabetes mellitus with diabetic peripheral angiopathy without gangrene; I99.8 Other disorder of circulatory system; E11.69 Type 2 diabetes mellitus with other specified complication; S81.802A Unspecified open wound, left lower leg, initial encounter; S81.801A Unspecified open wound, right lower leg, initial encounter; X58.XXXA Exposure to other specified factors, initial encounter; I87.2 Venous insufficiency (chronic) (peripheral); Z96.649 Presence of unspecified artificial hip joint; E11.22 Type 2 diabetes mellitus with diabetic chronic kidney disease; E87.5 Hyperkalemia; E87.8 Other disorders of electrolyte and fluid balance, not elsewhere classified; Z99.2 Dependence on renal dialysis; Z79.01 Long term (current) use of anticoagulants; Z79.899 Other long term (current) drug therapy; I25.2 Old myocardial infarction; Y93.89 Activity, other specified; Y92.89 Other specified places as the place of occurrence of the external cause; Y99.8 Other external cause status
CPT/HCPCS: 36246; 36415; 36600; 73590; 75710; 80048; 80053; 80202; 82375; 82805; 82962; 83036; 85025; 86705; 86709; 86803; 87070; 87077; 87186; 87340; 87426; 93923; 93970; 97162; 99285; A6261; C1725; C1760; C1769; C1893; J1644; J1815; J2250; J2270; J2543; J3010; J3370; J3490; J7040; J7060; Q9967

== ENCOUNTER 2021-03-28 03:26 | Inpatient (IN) | payer MEDICARE, MEDICAID ==
[~2021-03-28] VITALS: Ht 167.6 cm; Wt 123.4 kg
[~2021-03-28 03:26] MED LIST changes: -ACET650T37 MT; -ALBU18HF2 IH; +ALBU6.7H9 INH; -ALLO100T PO; +FURO-152 PO; +IBUP-2437 PO; -LACT1CAP77 PO; +LEVO100T9 PO; -LEVO112T7 MT; -MIDO5TAB4 PO; -OXYC-100 MT; -PANT40TA51 MT; +PROT40 PO; -SEVE800T25 PO; +SEVE800T8 PO; +TOPUD MT
[2021-03-28] MEDS ORDERED: ALBUTEROL (0.083%) 2.5MG/3ML NEB HHN STA (03:58)
[2021-03-28] MEDS ORDERED: IPRATROPIUM BROMIDE (0.02%) 0.5MG/2.5ML NEB HHN STA (03:58)
[2021-03-28] MEDS ORDERED: PREDNISONE 20MG TABLET PO STA (03:58)
[2021-03-28] MEDS ORDERED: MAGNESIUM 2 G PREMIX 50 ML IV ONE (04:00)
[2021-03-28 04:31] LABS: BASOPHILS % 0.4 % (0.0-2.0); EOSINOPHILS % 7.4 % (0.0-5.0); HEMATOCRIT. 34.7 % (36.0-48.0); HEMOGLOBIN. 11.2 g/dL (12.0-16.0); MEAN CORPUSCULAR HEMOGLOBIN 28.5 pg (28.0-32.0); MEAN CORPUSCULAR VOLUME 88.3 fL (81.0-99.0); MEAN PLATELET VOLUME 8.3 fl (7.4-10.4); MONOCYTES % 8.1 % (2.0-8.0); NEUTROPHILS % 68.1 % (40.0-76.0); PLATELET 234 x1000/uL (130-400); RED BLOOD CELL COUNT 3.93 mill/uL (4.2-5.4); RED CELL DISTRIBUTION WIDTH 17.4 % (11.6-14.6)
[2021-03-28 04:37] LABS: CHLORIDE 101 mEq/L (98-107)
[2021-03-28] MEDS ORDERED: FLUCONAZOLE 100MG TABLET PO ONE (04:45)
[2021-03-28 05:08] LABS: CLARITY URINE TURBID (CLEAR); KETONES URINE 2+ (NEGATIVE); LEUKOCYTE ESTERASE URINE 3+ (NEGATIVE); NITRITE URINE POSITIVE (NEGATIVE); OCCULT BLOOD URINE 3+ (NEGATIVE); PROTEIN URINE 3+ (NEGATIVE); SPECIFIC GRAVITY URINE 1.019 (1.005-1.030)
[2021-03-28 05:09] LABS: COLOR URINE BLOODY (YELLOW)
[2021-03-28] MEDS ORDERED: FUROSEMIDE 100MG/10ML VIAL IV NR (05:09)
[2021-03-28] MEDS ORDERED: CALCIUM CHLORIDE 1GM/10ML SYR IV NR (05:15)
[2021-03-28] MEDS ORDERED: ALBUTEROL (0.083%) 2.5MG/3ML NEB HHN NR (05:15)
[2021-03-28] MEDS ORDERED: INSULIN REGULAR (HUMULIN R) 300UNITS/3ML VIAL IV NR (05:15)
[2021-03-28] MEDS ORDERED: SODIUM BICARBONATE 8.4% 1 MEQ/ML 50ML SYR IV NR (05:15)
[2021-03-28] MEDS ORDERED: DEXTROSE 50% WATER 50ML SYRINGE IV NR (05:15)
[2021-03-28] MEDS ORDERED: NALOXONE HCL 0.4MG/ML VIAL IV PRN (08:15)
[2021-03-28] MEDS ORDERED: ONDANSETRON HCL 4MG/2ML INJ IV PRN (08:15)
[2021-03-28] MEDS ORDERED: ACETAMINOPHEN 325MG TABLET PO PRN (08:15)
[2021-03-28] MEDS ORDERED: CEFTRIAXONE 1 G PREMIX 50 ML IV SCH (09:00)
[2021-03-28] MEDS: HYDROCODONE/ACETAMINOPHEN 5/325MG TABLET PO PRN ×2 (09:16→17:19)
[2021-03-28 12:00] VITALS: BP 99/62
[2021-03-28 13:39] VITALS: BP 141/50
[2021-03-28] MEDS ORDERED: INFLUENZA VACCINE 05/PF 0.5 ML SYRINGE IM ONE (14:45)
[2021-03-28] MEDS ORDERED: PNEUMOCOCCAL 23-VAL P-SAC VAC 0.5 ML IM ONE (14:45)
[2021-03-28 16:27] VITALS: BP 112/57
[2021-03-28] MEDS: CEFTRIAXONE 1,000 MG in DEXTROSE 5% WATER 50 ML IV SCH (17:05)
[2021-03-28 20:00] VITALS: BP 97/58
[2021-03-28] MEDS: CLOTRIMAZOLE 1% VAGINAL CREAM 45GM VG SCH (21:12)
[2021-03-28] MEDS: HYDROCODONE/ACETAMINOPHEN 10/325MG TABLET PO PRN (22:23)
[2021-03-28] MEDS ORDERED: SODIUM POLYSTYRENE SULFONATE 15 G/60 ML BOT PO NR (22:45)
[2021-03-29] VITALS: BP 99/45
[2021-03-29] MEDS: IPRATROPIUM/ALBUTEROL 0.5-3(2.5)MG/3ML NEB HHN SCH ×6 (00:24→20:45)
[2021-03-29 04:00] VITALS: BP 91/42
[2021-03-29 07:42] VITALS: BP 99/52
[2021-03-29 07:48] LABS: BASOPHILS % 0.8 % (0.0-2.0); EOSINOPHILS % 0.3 % (0.0-5.0); HEMATOCRIT. 31.9 % (36.0-48.0); HEMOGLOBIN. 10.5 g/dL (12.0-16.0); LYMPHOCYTES % 12.5 % (20.0-50.0); MEAN CORPUSCULAR HEMOGLOBIN 28.7 pg (28.0-32.0); MEAN CORPUSCULAR VOLUME 87.7 fL (81.0-99.0); MEAN PLATELET VOLUME 8.6 fl (7.4-10.4); MONOCYTES % 10.9 % (2.0-8.0); NEUTROPHILS % 75.5 % (40.0-76.0); PLATELET 260 x1000/uL (130-400); RED BLOOD CELL COUNT 3.64 mill/uL (4.2-5.4); RED CELL DISTRIBUTION WIDTH 17.2 % (11.6-14.6)
[2021-03-29 09:31] LABS: PHOSPHORUS 6.5 mg/dL (2.5-4.9)
[2021-03-29] MEDS: ENOXAPARIN 40MG/0.4ML SYR SUBCUT SCH (11:05)
[2021-03-29 12:26] VITALS: BP 100/50
[2021-03-29] MEDS ORDERED: SODIUM POLYSTYRENE SULFONATE 15 G/60 ML BOT PO NR (15:30)
[2021-03-29] MEDS ORDERED: HEPARIN SODIUM 1,000 UNIT/1ML VIAL IV NR (15:45)
[2021-03-29 16:27] VITALS: BP 95/55
[2021-03-29] MEDS: CEFTRIAXONE 1,000 MG in DEXTROSE 5% WATER 50 ML IV SCH (16:57)
[2021-03-29] MEDS: SEVELAMER CARBONATE 800 MG TABLET PO SCH (16:57)
[2021-03-29] MEDS: HYDROCODONE/ACETAMINOPHEN 10/325MG TABLET PO PRN (16:57)
[2021-03-29] MEDS ORDERED: LEVO250T58 MT (18:16)
[2021-03-29 20:46] VITALS: BP 99/54
[2021-03-29] MEDS: CLOTRIMAZOLE 1% VAGINAL CREAM 45GM VG SCH (22:01)
[2021-03-30] VITALS: BP 92/55
[2021-03-30 03:43] VITALS: BP 94/54
[2021-03-30 08:00] VITALS: BP 104/59
[2021-03-30] MEDS: IPRATROPIUM/ALBUTEROL 0.5-3(2.5)MG/3ML NEB HHN SCH ×3 (08:19→15:01)
[2021-03-30] MEDS: SEVELAMER CARBONATE 800 MG TABLET PO SCH ×2 (08:32→12:23)
[2021-03-30] MEDS: ENOXAPARIN 40MG/0.4ML SYR SUBCUT SCH (08:32)
[2021-03-30] MEDS: HYDROCODONE/ACETAMINOPHEN 10/325MG TABLET PO PRN (08:39)
[2021-03-30 12:00] VITALS: BP 98/59
[2021-03-30 14:09] VITALS: BP 108/59
[2021-03-30 16:00] VITALS: BP 100/52
== END 2021-03-30 16:30 | disposition home or self-care (01) | DRG 640 ==
LOC: ER 03:26 → ENRESERV 09:28 → 8WST 11:03
PROVIDERS: ADMIT Internal Medicine; ATTEND Internal Medicine
PROC: 5A1D70Z Performance of Urinary Filtration, Intermittent, Less than 6 Hours Per Day (ICD-10-PCS; principal; 2021-03-28)
PROC: 5A1D70Z Performance of Urinary Filtration, Intermittent, Less than 6 Hours Per Day (ICD-10-PCS; 2021-03-29)
DX: E87.5 Hyperkalemia (principal); N18.6 End stage renal disease; I13.2 Hypertensive heart and chronic kidney disease with heart failure and with stage 5 chronic kidney disease, or end stage renal disease; N39.0 Urinary tract infection, site not specified; E44.1 Mild protein-calorie malnutrition; Z68.41 Body mass index [BMI] 40.0-44.9, adult; I50.9 Heart failure, unspecified; N93.9 Abnormal uterine and vaginal bleeding, unspecified; B37.3 Candidiasis of vulva and vagina; D64.9 Anemia, unspecified; Z20.822 Contact with and (suspected) exposure to COVID-19; E11.22 Type 2 diabetes mellitus with diabetic chronic kidney disease; E66.9 Obesity, unspecified; E87.1 Hypo-osmolality and hyponatremia; E87.2 Acidosis; J44.9 Chronic obstructive pulmonary disease, unspecified; I25.2 Old myocardial infarction; Z99.2 Dependence on renal dialysis; Z82.49 Family history of ischemic heart disease and other diseases of the circulatory system; Z71.3 Dietary counseling and surveillance
CPT/HCPCS: 36415; 71045; 74176; 80048; 80053; 81003; 82962; 84100; 84132; 84484; 85025; 87077; 87186; 87340; 87426; 90686; 94640; 99291; J0696; J1644; J1650; J1815; J1940; J3475; J3490; J7060; J7512

== ENCOUNTER 2021-04-22 14:27 | Inpatient (IN) | payer MEDICARE, MEDICAID ==
[~2021-04-22] VITALS: Ht 165.1 cm; Wt 118.4 kg
[~2021-04-22 14:27] MED LIST changes: -IBUP-2437 PO; +LEVO250T58 MT
[2021-04-22] MEDS ORDERED: ATROPINE SULFATE 1MG/10ML SYR IV ONE (15:15)
[2021-04-22] MEDS ORDERED: CALCIUM GLUCONATE 100MG/ML 10ML VIAL IV ONE ×2 (15:15→18:30)
[2021-04-22] MEDS ORDERED: METHYLPREDNISOLONE SOD SUCC 125 MG/2 ML VIAL IV STA (15:16)
[2021-04-22] MEDS ORDERED: ALBUTEROL (0.083%) 2.5MG/3ML NEB HHN STA (15:16)
[2021-04-22] MEDS ORDERED: IPRATROPIUM BROMIDE (0.02%) 0.5MG/2.5ML NEB HHN STA (15:16)
[2021-04-22] MEDS ORDERED: AZITHROMYCIN 500 MG in DEXT 5% WATER 250 ML IV SCH (15:30)
[2021-04-22] MEDS ORDERED: CEFTRIAXONE 1 G PREMIX 50 ML IV ONE (15:30)
[2021-04-22 15:54] LABS: BG BASE EXCESS -11.6 mmol/L (-2.0-2.0); BG CARBOXYHEMOGLOBIN 0.7 % (0.5-1.5); BG DEOXYHEMOGLOBIN 4.4 % (0.0-5.0); BG FRACTION INSPIRED OXYGEN 21; BG HCO3 ACT 13.9 mmol/L (22.0-26.0); BG METHEMOGLOBIN 0.3 % (0.0-1.5); BG OXYGEN SATURATION 95.6 % (92.0-98.5); BG OXYHEMOGLOBIN 94.6 % (94.0-97.0); BG PCO2 30.5 mmHg (35.0-45.0); BG PH 7.277 (7.350-7.450); BG PO2 81.6 mmHg (75.0-100.0); BG SAMPLE SITE RIGHT RADIAL; BG TOTAL HEMOGLOBIN 11.3 g/dL (12.0-18.0); BG VENT MODE ROOM AIR
[2021-04-22] MEDS ORDERED: CALCIUM GLUCONATE 2,000 MG in DEXT 5% WATER 100 ML IV ONE (16:00)
[2021-04-22 16:58] LABS: CHLORIDE 101 mEq/L (98-107)
[2021-04-22] MEDS ORDERED: DOPAMINE 400MG/250ML PREMIX 250 ML IV ONE ×2 (17:15→17:30)
[2021-04-22] MEDS ORDERED: FUROSEMIDE 40MG/4ML VIAL IV NR (18:00)
[2021-04-22] MEDS ORDERED: SODIUM BICARBONATE 8.4% 1 MEQ/ML 50ML SYR IV NR (18:00)
[2021-04-22] MEDS ORDERED: DEXTROSE 50% WATER 50ML SYRINGE IV NR (18:00)
[2021-04-22] MEDS ORDERED: INSULIN REGULAR (HUMULIN R) 300UNITS/3ML VIAL IV NR (18:00)
[2021-04-22] MEDS ORDERED: ALBUTEROL (0.083%) 2.5MG/3ML NEB HHN NR (18:00)
[2021-04-22 19:13] LABS: BASOPHILS % 0.4 % (0.0-2.0); EOSINOPHILS % 2.9 % (0.0-5.0); HEMATOCRIT. 33.9 % (36.0-48.0); HEMOGLOBIN. 11.1 g/dL (12.0-16.0); MEAN CORPUSCULAR HEMOGLOBIN 28.9 pg (28.0-32.0); MEAN CORPUSCULAR VOLUME 88.4 fL (81.0-99.0); MEAN PLATELET VOLUME 8.8 fl (7.4-10.4); MONOCYTES % 10.3 % (2.0-8.0); NEUTROPHILS % 77.4 % (40.0-76.0); PLATELET 346 x1000/uL (130-400); RED BLOOD CELL COUNT 3.83 mill/uL (4.2-5.4); RED CELL DISTRIBUTION WIDTH 16.8 % (11.6-14.6)
[2021-04-22 19:50] LABS: HEPATITIS B SURFACE ANTIGEN NEGATIVE
[2021-04-22] MEDS ORDERED: MAGNESIUM/ALUMINUM HYDROXIDE/SIMETHICONE 30ML UDC PO PRN (23:00)
[2021-04-22] MEDS ORDERED: CLONIDINE 0.1MG TABLET PO PRN (23:00)
[2021-04-22] MEDS ORDERED: ONDANSETRON HCL 4MG/2ML INJ IV PRN (23:00)
[2021-04-22] MEDS ORDERED: NALOXONE HCL 0.4 MG/ML 1ML VIAL IV PRN (23:15)
[2021-04-22] MEDS: HYDROCODONE/ACETAMINOPHEN 5/325MG TABLET PO PRN (23:27)
[2021-04-23] MEDS: IPRATROPIUM/ALBUTEROL 0.5-3(2.5)MG/3ML NEB NEB PRN (02:51)
[2021-04-23] MEDS: HYDROCODONE/ACETAMINOPHEN 5/325MG TABLET PO PRN ×3 (03:55→17:19)
[2021-04-23] MEDS ORDERED: INSULIN REGULAR (HUMULIN R) 300UNITS/3ML VIAL IV SCH (06:00)
[2021-04-23] MEDS ORDERED: SODIUM BICARBONATE 8.4% 1 MEQ/ML 50ML SYR IV SCH (06:00)
[2021-04-23] MEDS ORDERED: DEXTROSE 50% WATER 50ML SYRINGE IV SCH (06:00)
[2021-04-23] MEDS ORDERED: CALCIUM GLUCONATE 100MG/ML 10ML VIAL IV SCH (06:00)
[2021-04-23 06:40] LABS: HEMATOCRIT. 30.1 % (36.0-48.0); HEMOGLOBIN. 10.2 g/dL (12.0-16.0); MEAN CORPUSCULAR HEMOGLOBIN 29.5 pg (28.0-32.0); MEAN CORPUSCULAR VOLUME 87.1 fL (81.0-99.0); MEAN PLATELET VOLUME 8.3 fl (7.4-10.4); PLATELET 314 x1000/uL (130-400); RED BLOOD CELL COUNT 3.46 mill/uL (4.2-5.4); RED CELL DISTRIBUTION WIDTH 16.7 % (11.6-14.6)
[2021-04-23 10:50] LABS: PLATELET ESTIMATE NORMAL
[2021-04-23 12:00] VITALS: BP 120/59
[2021-04-23] MEDS ORDERED: DEXTROSE 50% WATER 50ML SYRINGE IV PRN ×2 (15:15)
[2021-04-23 16:00] VITALS: BP 96/48
[2021-04-23 16:15] VITALS: BP 96/48
[2021-04-23] MEDS ORDERED: APIXABAN 2.5 MG TABLET PO SCH (17:00)
[2021-04-23] MEDS: SEVELAMER CARBONATE 800 MG TABLET PO SCH (17:18)
[2021-04-23] MEDS: FUROSEMIDE 40MG/4ML VIAL IVP SCH (17:18)
[2021-04-23] MEDS: LEVOTHYROXINE SODIUM 100MCG TABLET PO SCH (17:18)
[2021-04-23] MEDS: AMIODARONE HCL 200 MG TABLET PO SCH (17:18)
[2021-04-23] MEDS: BLOOD SUGAR DIAGNOSTIC STRIP TEST SCH ×2 (17:20→20:21)
[2021-04-23] MEDS: INSULIN LISPRO 100 UNITS/ML SUBCUT SCH ×2 (17:50→20:22)
[2021-04-23 20:00] VITALS: BP 106/55
[2021-04-23] MEDS: ACETAMINOPHEN 325MG TABLET PO PRN (20:21)
[2021-04-23 21:13] LABS: CREATINE KINASE MB FRACTION 3.6 ng/mL (0.5-3.6)
[2021-04-24] VITALS: BP 119/73
[2021-04-24 04:00] VITALS: BP 102/50
[2021-04-24] MEDS: BLOOD SUGAR DIAGNOSTIC STRIP TEST SCH ×4 (06:21→20:07)
[2021-04-24] MEDS: LEVOTHYROXINE SODIUM 100MCG TABLET PO SCH (06:21)
[2021-04-24] MEDS: PANTOPRAZOLE 40MG DR TABLET PO SCH (06:21)
[2021-04-24] MEDS: ACETAMINOPHEN 325MG TABLET PO PRN (06:25)
[2021-04-24] MEDS: INSULIN LISPRO 100 UNITS/ML SUBCUT SCH ×4 (06:25→20:07)
[2021-04-24 06:57] LABS: HEMOGLOBIN. 10.7 g/dL (12.0-16.0); MEAN CORPUSCULAR HEMOGLOBIN 29.6 pg (28.0-32.0); MEAN CORPUSCULAR VOLUME 88.4 fL (81.0-99.0); MEAN PLATELET VOLUME 8.4 fl (7.4-10.4); PLATELET 328 x1000/uL (130-400); RED BLOOD CELL COUNT 3.62 mill/uL (4.2-5.4)
[2021-04-24 07:43] LABS: CHLORIDE 103 mEq/L (98-107)
[2021-04-24 08:30] VITALS: BP 106/51
[2021-04-24] MEDS ORDERED: DEXTROSE 50% WATER 50ML SYRINGE IV NR (09:11)
[2021-04-24] MEDS ORDERED: SODIUM BICARBONATE 8.4% 1 MEQ/ML 50ML SYR IV NR (09:11)
[2021-04-24] MEDS: AMIODARONE HCL 200 MG TABLET PO SCH (09:16)
[2021-04-24] MEDS: SEVELAMER CARBONATE 800 MG TABLET PO SCH (09:16)
[2021-04-24] MEDS: APIXABAN 5 MG TABLET PO SCH ×2 (09:16→17:30)
[2021-04-24] MEDS: FUROSEMIDE 40MG/4ML VIAL IVP SCH (09:16)
[2021-04-24] MEDS ORDERED: INSULIN REGULAR (HUMULIN R) UD 100 UNITS/ML SYR IV NR (10:30)
[2021-04-24] MEDS ORDERED: SODIUM POLYSTYRENE SULFONATE 15 G/60 ML BOT PO NR (10:30)
[2021-04-24] MEDS: IPRATROPIUM/ALBUTEROL 0.5-3(2.5)MG/3ML NEB NEB PRN ×2 (11:02→17:34)
[2021-04-24 12:00] VITALS: BP 121/54
[2021-04-24] MEDS: HYDROCODONE/ACETAMINOPHEN 5/325MG TABLET PO PRN ×3 (12:12→22:43)
[2021-04-24] MEDS: GABAPENTIN 300MG CAPSULE PO SCH (14:20)
[2021-04-24 14:23] LABS: PLATELET ESTIMATE NORMAL
[2021-04-24 16:00] VITALS: BP 116/61
[2021-04-24 20:00] VITALS: BP 108/50
[2021-04-24] MEDS ORDERED: CEFTRIAXONE 1 G PREMIX 50 ML IV SCH (20:15)
[2021-04-24] MEDS: CEFTRIAXONE 1,000 MG in DEXTROSE 5% WATER 50 ML IV SCH (22:43)
[2021-04-25] VITALS: BP 93/60
[2021-04-25 04:00] VITALS: BP 100/51
[2021-04-25] MEDS: PANTOPRAZOLE 40MG DR TABLET PO SCH (06:26)
[2021-04-25] MEDS: BLOOD SUGAR DIAGNOSTIC STRIP TEST SCH ×4 (06:26→20:36)
[2021-04-25] MEDS: LEVOTHYROXINE SODIUM 100MCG TABLET PO SCH (06:26)
[2021-04-25] MEDS: ACETAMINOPHEN 325MG TABLET PO PRN (06:26)
[2021-04-25] MEDS: INSULIN LISPRO 100 UNITS/ML SUBCUT SCH ×4 (07:50→20:37)
[2021-04-25 08:00] VITALS: BP 98/42
[2021-04-25] MEDS: FUROSEMIDE 40MG/4ML VIAL IVP SCH (08:52)
[2021-04-25] MEDS: GABAPENTIN 300MG CAPSULE PO SCH ×2 (09:23→16:49)
[2021-04-25] MEDS: HYDROCODONE/ACETAMINOPHEN 5/325MG TABLET PO PRN ×2 (09:23→16:50)
[2021-04-25] MEDS: AMIODARONE HCL 200 MG TABLET PO SCH (09:23)
[2021-04-25] MEDS: SEVELAMER CARBONATE 800 MG TABLET PO SCH (09:23)
[2021-04-25] MEDS: APIXABAN 5 MG TABLET PO SCH ×2 (09:23→16:49)
[2021-04-25 12:00] VITALS: BP 90/53
[2021-04-25 15:43] LABS: BASOPHILS % 1.5 % (0.0-2.0); EOSINOPHILS % 7.4 % (0.0-5.0); HEMATOCRIT. 29.1 % (36.0-48.0); HEMOGLOBIN. 9.6 g/dL (12.0-16.0); LYMPHOCYTES % 14.3 % (20.0-50.0); MEAN CORPUSCULAR VOLUME 87.6 fL (81.0-99.0); MEAN PLATELET VOLUME 7.9 fl (7.4-10.4); MONOCYTES % 12.1 % (2.0-8.0); NEUTROPHILS % 64.7 % (40.0-76.0); PLATELET 285 x1000/uL (130-400); RED BLOOD CELL COUNT 3.32 mill/uL (4.2-5.4); RED CELL DISTRIBUTION WIDTH 17.1 % (11.6-14.6)
[2021-04-25 16:00] VITALS: BP 100/52
[2021-04-25 19:55] VITALS: BP 109/70
[2021-04-25] MEDS: CEFTRIAXONE 1,000 MG in DEXTROSE 5% WATER 50 ML IV SCH (21:05)
[2021-04-26] VITALS: BP 137/69
[2021-04-26] MEDS: ACETAMINOPHEN 325MG TABLET PO PRN (03:57)
[2021-04-26 04:00] VITALS: BP 112/64
[2021-04-26] MEDS: PANTOPRAZOLE 40MG DR TABLET PO SCH (05:57)
[2021-04-26] MEDS: LEVOTHYROXINE SODIUM 100MCG TABLET PO SCH (05:57)
[2021-04-26 06:16] LABS: BASOPHILS % 0.1 % (0.0-2.0); EOSINOPHILS % 7.1 % (0.0-5.0); HEMATOCRIT. 28.1 % (36.0-48.0); HEMOGLOBIN. 9.5 g/dL (12.0-16.0); LYMPHOCYTES % 20.2 % (20.0-50.0); MEAN CORPUSCULAR HEMOGLOBIN 29.7 pg (28.0-32.0); MEAN CORPUSCULAR VOLUME 87.6 fL (81.0-99.0); MEAN PLATELET VOLUME 7.9 fl (7.4-10.4); MONOCYTES % 14.3 % (2.0-8.0); NEUTROPHILS % 58.3 % (40.0-76.0); PLATELET 278 x1000/uL (130-400); RED CELL DISTRIBUTION WIDTH 17.1 % (11.6-14.6)
[2021-04-26] MEDS: HYDROCODONE/ACETAMINOPHEN 5/325MG TABLET PO PRN ×2 (06:18→10:50)
[2021-04-26] MEDS: BLOOD SUGAR DIAGNOSTIC STRIP TEST SCH ×4 (06:31→20:48)
[2021-04-26] MEDS: INSULIN LISPRO 100 UNITS/ML SUBCUT SCH ×4 (07:50→20:47)
[2021-04-26 08:05] VITALS: BP 107/56
[2021-04-26] MEDS: SEVELAMER CARBONATE 800 MG TABLET PO SCH (08:52)
[2021-04-26] MEDS: GABAPENTIN 300MG CAPSULE PO SCH ×2 (08:53→17:34)
[2021-04-26] MEDS: FUROSEMIDE 40MG/4ML VIAL IVP SCH (08:53)
[2021-04-26] MEDS: AMIODARONE HCL 200 MG TABLET PO SCH (08:53)
[2021-04-26] MEDS: APIXABAN 5 MG TABLET PO SCH ×2 (08:53→17:34)
[2021-04-26] MEDS: IPRATROPIUM/ALBUTEROL 0.5-3(2.5)MG/3ML NEB NEB PRN ×2 (11:23→20:26)
[2021-04-26 11:50] VITALS: BP 98/57
[2021-04-26] MEDS ORDERED: AZIT500T8 MT ×2 (13:37)
[2021-04-26 16:24] VITALS: BP 109/56
[2021-04-26 20:00] VITALS: BP 115/58
[2021-04-26 20:44] LABS: CLARITY URINE TURBID (CLEAR); COLOR URINE YELLOW (YELLOW); KETONES URINE TRACE (NEGATIVE); LEUKOCYTE ESTERASE URINE 3+ (NEGATIVE); NITRITE URINE NEGATIVE (NEGATIVE); OCCULT BLOOD URINE 3+ (NEGATIVE); PROTEIN URINE 2+ (NEGATIVE); SPECIFIC GRAVITY URINE 1.021 (1.005-1.030); UROBILINOGEN URINE 0.2 E.U./dL (0.2-1.0)
[2021-04-26] MEDS: CEFTRIAXONE 1,000 MG in DEXTROSE 5% WATER 50 ML IV SCH (20:47)
[2021-04-27] VITALS (7 sets, daily range): BP systolic 101–116; BP diastolic 47–65
[2021-04-27] MEDS: IPRATROPIUM/ALBUTEROL 0.5-3(2.5)MG/3ML NEB NEB PRN ×5 (00:09→22:04)
[2021-04-27 06:18] LABS: BASOPHILS % 0.8 % (0.0-2.0); HEMATOCRIT. 29.7 % (36.0-48.0); HEMOGLOBIN. 9.9 g/dL (12.0-16.0); LYMPHOCYTES % 16.8 % (20.0-50.0); MEAN CORPUSCULAR HEMOGLOBIN 29.6 pg (28.0-32.0); MEAN PLATELET VOLUME 8.4 fl (7.4-10.4); MONOCYTES % 12.5 % (2.0-8.0); NEUTROPHILS % 63.9 % (40.0-76.0); PLATELET 271 x1000/uL (130-400); RED BLOOD CELL COUNT 3.34 mill/uL (4.2-5.4); RED CELL DISTRIBUTION WIDTH 16.6 % (11.6-14.6)
[2021-04-27] MEDS: PANTOPRAZOLE 40MG DR TABLET PO SCH (06:31)
[2021-04-27] MEDS: LEVOTHYROXINE SODIUM 100MCG TABLET PO SCH (06:31)
[2021-04-27] MEDS: BLOOD SUGAR DIAGNOSTIC STRIP TEST SCH ×4 (06:39→21:28)
[2021-04-27] MEDS: INSULIN LISPRO 100 UNITS/ML SUBCUT SCH ×4 (07:50→21:00)
[2021-04-27] MEDS: FUROSEMIDE 40MG/4ML VIAL IVP SCH (09:00)
[2021-04-27] MEDS: SEVELAMER CARBONATE 800 MG TABLET PO SCH (09:33)
[2021-04-27] MEDS: AMIODARONE HCL 200 MG TABLET PO SCH (09:33)
[2021-04-27] MEDS: APIXABAN 5 MG TABLET PO SCH ×2 (09:34→16:13)
[2021-04-27] MEDS: GABAPENTIN 300MG CAPSULE PO SCH (09:34)
[2021-04-27 12:09] LABS: FOLIC ACID (FOLATE) SERUM 9.3 ng/mL (>5.38)
[2021-04-27 12:25] LABS: PHOSPHORUS 8.3 mg/dL (2.5-4.9)
[2021-04-27] MEDS: METHYLPREDNISOLONE SOD SUCC 125 MG/2 ML VIAL IV SCH ×2 (13:05→21:28)
[2021-04-27] MEDS ORDERED: DIGOXIN 500MCG/2ML AMP IV NR (14:15)
[2021-04-27] MEDS: AZITHROMYCIN 500 MG in DEXT 5% WATER 250 ML IV SCH (16:13)
[2021-04-27] MEDS: HYDROCODONE/ACETAMINOPHEN 5/325MG TABLET PO PRN (16:24)
[2021-04-27] MEDS: CEFTRIAXONE 1,000 MG in DEXTROSE 5% WATER 50 ML IV SCH (21:28)
[2021-04-28 00:22] VITALS: BP 98/55
[2021-04-28 01:09] LABS: T4 FREE 1.19 ng/dL (0.76-1.46)
[2021-04-28 04:00] VITALS: BP 107/60
[2021-04-28] MEDS: LEVOTHYROXINE SODIUM 100MCG TABLET PO SCH (06:36)
[2021-04-28] MEDS: PANTOPRAZOLE 40MG DR TABLET PO SCH (06:36)
[2021-04-28] MEDS: METHYLPREDNISOLONE SOD SUCC 125 MG/2 ML VIAL IV SCH ×3 (06:36→21:49)
[2021-04-28 07:01] LABS: CHLORIDE 106 mEq/L (98-107)
[2021-04-28 07:18] LABS: HEMATOCRIT. 29.2 % (36.0-48.0); HEMOGLOBIN. 9.6 g/dL (12.0-16.0); MEAN CORPUSCULAR VOLUME 88.3 fL (81.0-99.0); MEAN PLATELET VOLUME 8.3 fl (7.4-10.4); PLATELET 260 x1000/uL (130-400); RED BLOOD CELL COUNT 3.31 mill/uL (4.2-5.4); RED CELL DISTRIBUTION WIDTH 16.5 % (11.6-14.6)
[2021-04-28] MEDS: BLOOD SUGAR DIAGNOSTIC STRIP TEST SCH ×4 (07:20→21:49)
[2021-04-28] MEDS: INSULIN LISPRO 100 UNITS/ML SUBCUT SCH ×4 (07:50→21:48)
[2021-04-28 08:00] VITALS: BP 123/67
[2021-04-28] MEDS: APIXABAN 5 MG TABLET PO SCH ×2 (09:21→18:21)
[2021-04-28] MEDS: AMIODARONE HCL 200 MG TABLET PO SCH (09:21)
[2021-04-28] MEDS: SEVELAMER CARBONATE 800 MG TABLET PO SCH (09:21)
[2021-04-28] MEDS: IPRATROPIUM/ALBUTEROL 0.5-3(2.5)MG/3ML NEB NEB PRN ×2 (09:40→21:44)
[2021-04-28] MEDS ORDERED: LIDOCAINE HCL 1% 30ML VIAL (10MG/ML) INFIL NR (10:30)
[2021-04-28 12:00] VITALS: BP 118/55
[2021-04-28] MEDS: AZITHROMYCIN 500 MG in DEXT 5% WATER 250 ML IV SCH (13:59)
[2021-04-28 16:00] VITALS: BP 119/66
[2021-04-28 18:01] LABS: PLATELET ESTIMATE NORMAL
[2021-04-28] MEDS: ACETAMINOPHEN 325MG TABLET PO PRN (18:20)
[2021-04-28 20:00] VITALS: BP 123/66
[2021-04-28] MEDS: BENZTROPINE MESYLATE 1MG TABLET PO SCH (21:49)
[2021-04-28] MEDS: CEFTRIAXONE 1,000 MG in DEXTROSE 5% WATER 50 ML IV SCH (21:50)
[2021-04-29] VITALS: BP 104/81
[2021-04-29 04:00] VITALS: BP 119/55
[2021-04-29] MEDS: IPRATROPIUM/ALBUTEROL 0.5-3(2.5)MG/3ML NEB NEB PRN (05:31)
[2021-04-29] MEDS: METHYLPREDNISOLONE SOD SUCC 125 MG/2 ML VIAL IV SCH ×3 (06:28→21:42)
[2021-04-29 07:14] LABS: HEMATOCRIT. 30.1 % (36.0-48.0); HEMOGLOBIN. 9.9 g/dL (12.0-16.0); MEAN CORPUSCULAR HEMOGLOBIN 29.3 pg (28.0-32.0); MEAN CORPUSCULAR VOLUME 88.8 fL (81.0-99.0); MEAN PLATELET VOLUME 8.4 fl (7.4-10.4); PLATELET 261 x1000/uL (130-400); RED BLOOD CELL COUNT 3.39 mill/uL (4.2-5.4); RED CELL DISTRIBUTION WIDTH 16.9 % (11.6-14.6)
[2021-04-29] MEDS: BLOOD SUGAR DIAGNOSTIC STRIP TEST SCH ×4 (07:20→21:32)
[2021-04-29 07:41] LABS: PHOSPHORUS 7.6 mg/dL (2.5-4.9)
[2021-04-29 08:00] VITALS: BP 120/56
[2021-04-29] MEDS: INSULIN LISPRO 100 UNITS/ML SUBCUT SCH ×4 (08:35→21:43)
[2021-04-29] MEDS: AMIODARONE HCL 200 MG TABLET PO SCH (08:44)
[2021-04-29] MEDS: FAMOTIDINE 20MG TABLET PO SCH (08:44)
[2021-04-29] MEDS: SEVELAMER CARBONATE 800 MG TABLET PO SCH (08:44)
[2021-04-29] MEDS: APIXABAN 5 MG TABLET PO SCH ×2 (08:44→18:06)
[2021-04-29] MEDS: BENZTROPINE MESYLATE 1MG TABLET PO SCH ×2 (08:44→21:42)
[2021-04-29] MEDS: LEVOTHYROXINE SODIUM 137MCG TABLET PO SCH (08:45)
[2021-04-29 12:00] VITALS: BP 102/69
[2021-04-29] MEDS: AZITHROMYCIN 500 MG in DEXT 5% WATER 250 ML IV SCH (13:28)
[2021-04-29 16:00] VITALS: BP 105/54
[2021-04-29] MEDS: ACETAMINOPHEN 325MG TABLET PO PRN (18:06)
[2021-04-29 19:59] LABS: PLATELET ESTIMATE NORMAL
[2021-04-29 20:32] VITALS: BP 111/51
[2021-04-29] MEDS ORDERED: EPOETIN ALFA-EPBX 10,000 UNIT/ML VIAL SUBCUT SCH (21:00)
[2021-04-29] MEDS: CEFTRIAXONE 1,000 MG in DEXTROSE 5% WATER 50 ML IV SCH (21:42)
[2021-04-30 00:26] VITALS: BP 116/61
[2021-04-30] MEDS: ACETAMINOPHEN 325MG TABLET PO PRN (03:44)
[2021-04-30 04:40] VITALS: BP 128/68
[2021-04-30] MEDS: METHYLPREDNISOLONE SOD SUCC 125 MG/2 ML VIAL IV SCH ×3 (06:39→21:44)
[2021-04-30] MEDS: LEVOTHYROXINE SODIUM 137MCG TABLET PO SCH (06:39)
[2021-04-30] MEDS: BLOOD SUGAR DIAGNOSTIC STRIP TEST SCH ×4 (07:20→21:10)
[2021-04-30 08:04] VITALS: BP 103/63
[2021-04-30] MEDS: SEVELAMER CARBONATE 800 MG TABLET PO SCH (09:50)
[2021-04-30] MEDS: AZITHROMYCIN 500 MG TABLET PO SCH (09:50)
[2021-04-30] MEDS: FAMOTIDINE 20MG TABLET PO SCH (09:50)
[2021-04-30] MEDS: AMIODARONE HCL 200 MG TABLET PO SCH (09:50)
[2021-04-30] MEDS: BENZTROPINE MESYLATE 1MG TABLET PO SCH ×2 (09:50→21:00)
[2021-04-30] MEDS: APIXABAN 5 MG TABLET PO SCH ×2 (09:50→17:41)
[2021-04-30] MEDS: INSULIN LISPRO 100 UNITS/ML SUBCUT SCH ×4 (09:51→21:44)
[2021-04-30 10:16] LABS: HEMATOCRIT. 32.5 % (36.0-48.0); HEMOGLOBIN. 10.8 g/dL (12.0-16.0); MEAN CORPUSCULAR HEMOGLOBIN 29.1 pg (28.0-32.0); MEAN CORPUSCULAR VOLUME 87.5 fL (81.0-99.0); MEAN PLATELET VOLUME 8.3 fl (7.4-10.4); PLATELET 296 x1000/uL (130-400); RED BLOOD CELL COUNT 3.71 mill/uL (4.2-5.4); RED CELL DISTRIBUTION WIDTH 16.6 % (11.6-14.6)
[2021-04-30 12:09] VITALS: BP 106/60
[2021-04-30 14:43] LABS: PLATELET ESTIMATE NORMAL
[2021-04-30 16:08] VITALS: BP 110/65
[2021-04-30 20:00] VITALS: BP 125/42
[2021-05-01] VITALS: BP 125/75
[2021-05-01 04:00] VITALS: BP 121/64
[2021-05-01] MEDS: METHYLPREDNISOLONE SOD SUCC 125 MG/2 ML VIAL IV SCH ×3 (05:26→21:33)
[2021-05-01] MEDS: LEVOTHYROXINE SODIUM 137MCG TABLET PO SCH (06:30)
[2021-05-01 07:17] LABS: HEMOGLOBIN. 11.2 g/dL (12.0-16.0); MEAN CORPUSCULAR HEMOGLOBIN 29.5 pg (28.0-32.0); MEAN CORPUSCULAR VOLUME 86.7 fL (81.0-99.0); MEAN PLATELET VOLUME 8.5 fl (7.4-10.4); PLATELET 289 x1000/uL (130-400); RED BLOOD CELL COUNT 3.81 mill/uL (4.2-5.4); RED CELL DISTRIBUTION WIDTH 16.3 % (11.6-14.6)
[2021-05-01] MEDS: BLOOD SUGAR DIAGNOSTIC STRIP TEST SCH ×4 (07:20→21:28)
[2021-05-01] MEDS: INSULIN LISPRO 100 UNITS/ML SUBCUT SCH ×4 (07:50→21:33)
[2021-05-01 08:06] VITALS: BP 127/79
[2021-05-01] MEDS: SEVELAMER CARBONATE 800 MG TABLET PO SCH (09:05)
[2021-05-01] MEDS: APIXABAN 5 MG TABLET PO SCH ×2 (09:05→17:28)
[2021-05-01] MEDS: BENZTROPINE MESYLATE 1MG TABLET PO SCH (09:05)
[2021-05-01] MEDS: FAMOTIDINE 20MG TABLET PO SCH (09:05)
[2021-05-01] MEDS: AMIODARONE HCL 200 MG TABLET PO SCH (09:09)
[2021-05-01] MEDS: ACETAMINOPHEN 325MG TABLET PO PRN (10:26)
[2021-05-01] MEDS: AZITHROMYCIN 500 MG TABLET PO SCH (10:26)
[2021-05-01 12:12] VITALS: BP 103/45
[2021-05-01 14:10] LABS: PLATELET ESTIMATE NORMAL
[2021-05-01 16:05] VITALS: BP 115/61
[2021-05-01 20:00] VITALS: BP 123/52
[2021-05-02] VITALS: BP 125/55
[2021-05-02 04:00] VITALS: BP 125/66
[2021-05-02] MEDS: LEVOTHYROXINE SODIUM 137MCG TABLET PO SCH (06:16)
[2021-05-02] MEDS: BLOOD SUGAR DIAGNOSTIC STRIP TEST SCH ×4 (06:16→21:34)
[2021-05-02] MEDS: METHYLPREDNISOLONE SOD SUCC 125 MG/2 ML VIAL IV SCH (06:16)
[2021-05-02] MEDS: ACETAMINOPHEN 325MG TABLET PO PRN ×2 (06:16→22:22)
[2021-05-02] MEDS: INSULIN LISPRO 100 UNITS/ML SUBCUT SCH ×4 (07:50→21:36)
[2021-05-02 08:00] VITALS: BP 142/72
[2021-05-02] MEDS: FAMOTIDINE 20MG TABLET PO SCH (09:27)
[2021-05-02] MEDS: AMIODARONE HCL 200 MG TABLET PO SCH (09:27)
[2021-05-02] MEDS: SEVELAMER CARBONATE 800 MG TABLET PO SCH (09:27)
[2021-05-02] MEDS: APIXABAN 5 MG TABLET PO SCH ×2 (09:27→17:28)
[2021-05-02 12:00] VITALS: BP 131/76
[2021-05-02 14:09] LABS: BG BASE EXCESS -5.5 mmol/L (-2.0-2.0); BG DEOXYHEMOGLOBIN 1.5 % (0.0-5.0); BG FRACTION INSPIRED OXYGEN 28; BG HCO3 ACT 21.2 mmol/L (22.0-26.0); BG METHEMOGLOBIN 0.3 % (0.0-1.5); BG OXYGEN SATURATION 98.5 % (92.0-98.5); BG OXYHEMOGLOBIN 98.2 % (94.0-97.0); BG PCO2 46.4 mmHg (35.0-45.0); BG PH 7.277 (7.350-7.450); BG PO2 146.4 mmHg (75.0-100.0); BG SAMPLE SITE RIGHT RADIAL; BG TOTAL HEMOGLOBIN 11.3 g/dL (12.0-18.0); BG VENT MODE NASAL CANNULA
[2021-05-02 16:00] VITALS: BP 114/66
[2021-05-02 20:00] VITALS: BP 116/87
[2021-05-02] MEDS: METHYLPREDNISOLONE SOD SUCC 40 MG/ML VIAL IV SCH (21:35)
[2021-05-03] VITALS: BP 117/63
[2021-05-03 00:06] LABS: CLARITY URINE CLOUDY (CLEAR); COLOR URINE DK YELLOW (YELLOW); KETONES URINE TRACE (NEGATIVE); LEUKOCYTE ESTERASE URINE 1+ (NEGATIVE); NITRITE URINE NEGATIVE (NEGATIVE); OCCULT BLOOD URINE 1+ (NEGATIVE); PROTEIN URINE TRACE (NEGATIVE); UROBILINOGEN URINE 0.2 E.U./dL (0.2-1.0)
[2021-05-03 04:00] VITALS: BP 126/64
[2021-05-03] MEDS: ACETAMINOPHEN 325MG TABLET PO PRN ×4 (06:35→22:40)
[2021-05-03] MEDS: BLOOD SUGAR DIAGNOSTIC STRIP TEST SCH ×4 (06:35→21:00)
[2021-05-03] MEDS: LEVOTHYROXINE SODIUM 137MCG TABLET PO SCH (06:35)
[2021-05-03 06:44] LABS: HEMATOCRIT. 34.7 % (36.0-48.0); HEMOGLOBIN. 11.1 g/dL (12.0-16.0); MEAN CORPUSCULAR HEMOGLOBIN 28.3 pg (28.0-32.0); MEAN CORPUSCULAR VOLUME 88.8 fL (81.0-99.0); MEAN PLATELET VOLUME 8.7 fl (7.4-10.4); PLATELET 284 x1000/uL (130-400); RED BLOOD CELL COUNT 3.91 mill/uL (4.2-5.4); RED CELL DISTRIBUTION WIDTH 16.7 % (11.6-14.6)
[2021-05-03 07:15] LABS: PHOSPHORUS 8.2 mg/dL (2.5-4.9)
[2021-05-03] MEDS: INSULIN LISPRO 100 UNITS/ML SUBCUT SCH ×4 (07:50→22:41)
[2021-05-03 08:00] VITALS: BP 113/48
[2021-05-03] MEDS: METHYLPREDNISOLONE SOD SUCC 40 MG/ML VIAL IV SCH ×2 (08:56→22:39)
[2021-05-03] MEDS: AMIODARONE HCL 200 MG TABLET PO SCH (08:56)
[2021-05-03] MEDS: FAMOTIDINE 20MG TABLET PO SCH (08:56)
[2021-05-03] MEDS: APIXABAN 5 MG TABLET PO SCH ×2 (08:56→18:02)
[2021-05-03] MEDS: SEVELAMER CARBONATE 800 MG TABLET PO SCH (08:56)
[2021-05-03 11:15] LABS: NUCLEATED RED BLOOD CELLS 1 /100 WBC; PLATELET ESTIMATE NORMAL
[2021-05-03] MEDS ORDERED: HEPARIN SODIUM 1,000 UNIT/1ML VIAL IV NR (11:45)
[2021-05-03] MEDS: LANTHANUM CARBONATE 500MG CHEW TABLET PO SCH ×2 (14:33→18:02)
[2021-05-03] MEDS ORDERED: CEFTRIAXONE 1 G PREMIX 50 ML IV SCH (15:15)
[2021-05-03 16:00] VITALS: BP 118/64
[2021-05-03] MEDS: CEFTRIAXONE 1,000 MG in DEXTROSE 5% WATER 50 ML IV SCH (18:02)
[2021-05-03 20:00] VITALS: BP 114/48
[2021-05-03 21:56] VITALS: BP 114/48
[2021-05-04 00:08] VITALS: BP 113/52
[2021-05-04 04:14] VITALS: BP 121/58
[2021-05-04] MEDS: ACETAMINOPHEN 325MG TABLET PO PRN ×3 (06:53→13:25)
[2021-05-04] MEDS: LEVOTHYROXINE SODIUM 137MCG TABLET PO SCH (06:54)
[2021-05-04] MEDS: BLOOD SUGAR DIAGNOSTIC STRIP TEST SCH ×4 (06:55→21:00)
[2021-05-04 07:02] LABS: HEMATOCRIT. 32.7 % (36.0-48.0); HEMOGLOBIN. 10.7 g/dL (12.0-16.0); MEAN CORPUSCULAR VOLUME 88.5 fL (81.0-99.0); MEAN PLATELET VOLUME 8.8 fl (7.4-10.4); PLATELET 278 x1000/uL (130-400); RED BLOOD CELL COUNT 3.69 mill/uL (4.2-5.4); RED CELL DISTRIBUTION WIDTH 16.3 % (11.6-14.6)
[2021-05-04] MEDS: INSULIN LISPRO 100 UNITS/ML SUBCUT SCH ×4 (07:50→22:45)
[2021-05-04 08:00] VITALS: BP 102/37
[2021-05-04] MEDS: FAMOTIDINE 20MG TABLET PO SCH (08:53)
[2021-05-04] MEDS: APIXABAN 5 MG TABLET PO SCH ×2 (08:53→17:09)
[2021-05-04] MEDS: LANTHANUM CARBONATE 500MG CHEW TABLET PO SCH ×3 (08:53→17:09)
[2021-05-04] MEDS: METHYLPREDNISOLONE SOD SUCC 40 MG/ML VIAL IV SCH (08:53)
[2021-05-04] MEDS: AMIODARONE HCL 200 MG TABLET PO SCH (08:53)
[2021-05-04 12:21] VITALS: BP 107/46
[2021-05-04 12:29] LABS: NUCLEATED RED BLOOD CELLS 1 /100 WBC; PLATELET ESTIMATE NORMAL
[2021-05-04 16:32] VITALS: BP 109/53
[2021-05-04] MEDS: CEFTRIAXONE 1,000 MG in DEXTROSE 5% WATER 50 ML IV SCH (18:40)
[2021-05-04 20:00] VITALS: BP 125/66
[2021-05-05] VITALS: BP 111/48
[2021-05-05 04:00] VITALS: BP 115/42
[2021-05-05] MEDS: LEVOTHYROXINE SODIUM 137MCG TABLET PO SCH (06:13)
[2021-05-05] MEDS: BLOOD SUGAR DIAGNOSTIC STRIP TEST SCH ×4 (06:13→21:00)
[2021-05-05 06:21] LABS: HEMATOCRIT. 33.9 % (36.0-48.0); HEMOGLOBIN. 11.1 g/dL (12.0-16.0); MEAN CORPUSCULAR HEMOGLOBIN 28.8 pg (28.0-32.0); MEAN CORPUSCULAR VOLUME 88.1 fL (81.0-99.0); MEAN PLATELET VOLUME 8.8 fl (7.4-10.4); PLATELET 246 x1000/uL (130-400); RED BLOOD CELL COUNT 3.84 mill/uL (4.2-5.4); RED CELL DISTRIBUTION WIDTH 16.3 % (11.6-14.6)
[2021-05-05] MEDS: INSULIN LISPRO 100 UNITS/ML SUBCUT SCH ×4 (07:50→22:15)
[2021-05-05 08:00] VITALS: BP 111/43
[2021-05-05] MEDS: ACETAMINOPHEN 325MG TABLET PO PRN (08:43)
[2021-05-05] MEDS: LANTHANUM CARBONATE 500MG CHEW TABLET PO SCH ×3 (08:44→17:33)
[2021-05-05] MEDS ORDERED: METHYLPREDNISOLONE SOD SUCC 40 MG/ML VIAL IV SCH (09:00)
[2021-05-05] MEDS: APIXABAN 5 MG TABLET PO SCH ×2 (10:20→17:33)
[2021-05-05] MEDS: FAMOTIDINE 20MG TABLET PO SCH (10:21)
[2021-05-05] MEDS: AMIODARONE HCL 200 MG TABLET PO SCH (10:21)
[2021-05-05 12:10] VITALS: BP 120/50
[2021-05-05 16:14] VITALS: BP 117/50
[2021-05-05] MEDS: CEFTRIAXONE 1,000 MG in DEXTROSE 5% WATER 50 ML IV SCH (17:33)
[2021-05-05 19:58] LABS: PLATELET ESTIMATE NORMAL
[2021-05-05 20:00] VITALS: BP 133/52
[2021-05-06] VITALS: BP 122/55
[2021-05-06 04:00] VITALS: BP 116/51
[2021-05-06] MEDS: LEVOTHYROXINE SODIUM 137MCG TABLET PO SCH (05:56)
[2021-05-06] MEDS: ACETAMINOPHEN 325MG TABLET PO PRN ×2 (05:56→16:05)
[2021-05-06] MEDS: BLOOD SUGAR DIAGNOSTIC STRIP TEST SCH ×4 (05:57→20:31)
[2021-05-06 07:29] LABS: HEMATOCRIT. 32.8 % (36.0-48.0); HEMOGLOBIN. 10.8 g/dL (12.0-16.0); MEAN CORPUSCULAR HEMOGLOBIN 29.1 pg (28.0-32.0); MEAN CORPUSCULAR VOLUME 88.1 fL (81.0-99.0); MEAN PLATELET VOLUME 8.9 fl (7.4-10.4); PLATELET 239 x1000/uL (130-400); RED BLOOD CELL COUNT 3.72 mill/uL (4.2-5.4); RED CELL DISTRIBUTION WIDTH 16.4 % (11.6-14.6)
[2021-05-06] MEDS: INSULIN LISPRO 100 UNITS/ML SUBCUT SCH ×4 (07:50→21:03)
[2021-05-06] MEDS: APIXABAN 5 MG TABLET PO SCH ×2 (10:03→17:39)
[2021-05-06] MEDS: LANTHANUM CARBONATE 500MG CHEW TABLET PO SCH ×3 (10:03→17:37)
[2021-05-06] MEDS: AMIODARONE HCL 200 MG TABLET PO SCH (10:03)
[2021-05-06] MEDS: FAMOTIDINE 20MG TABLET PO SCH (10:04)
[2021-05-06] MEDS: PREDNISONE 20MG TABLET PO SCH (10:04)
[2021-05-06 16:00] VITALS: BP 122/54
[2021-05-06 16:40] LABS: PLATELET ESTIMATE NORMAL
[2021-05-06] MEDS: CEFTRIAXONE 1,000 MG in DEXTROSE 5% WATER 50 ML IV SCH (17:37)
[2021-05-06 20:00] VITALS: BP 120/64
[2021-05-07] VITALS: BP 110/50
[2021-05-07 04:00] VITALS: BP 116/51
[2021-05-07] MEDS: BLOOD SUGAR DIAGNOSTIC STRIP TEST SCH ×4 (06:21→21:02)
[2021-05-07] MEDS: LEVOTHYROXINE SODIUM 137MCG TABLET PO SCH (06:35)
[2021-05-07 07:21] LABS: HEMATOCRIT. 33.6 % (36.0-48.0); MEAN CORPUSCULAR HEMOGLOBIN 29.1 pg (28.0-32.0); MEAN CORPUSCULAR VOLUME 88.6 fL (81.0-99.0); MEAN PLATELET VOLUME 8.8 fl (7.4-10.4); PLATELET 203 x1000/uL (130-400); RED BLOOD CELL COUNT 3.79 mill/uL (4.2-5.4); RED CELL DISTRIBUTION WIDTH 16.5 % (11.6-14.6)
[2021-05-07] MEDS: INSULIN LISPRO 100 UNITS/ML SUBCUT SCH ×4 (07:50→21:04)
[2021-05-07 08:00] VITALS: BP 106/44
[2021-05-07] MEDS: IPRATROPIUM/ALBUTEROL 0.5-3(2.5)MG/3ML NEB NEB PRN (08:24)
[2021-05-07] MEDS: AMIODARONE HCL 200 MG TABLET PO SCH (09:16)
[2021-05-07] MEDS: PREDNISONE 20MG TABLET PO SCH (09:16)
[2021-05-07] MEDS: FAMOTIDINE 20MG TABLET PO SCH (09:16)
[2021-05-07] MEDS: ACETAMINOPHEN 325MG TABLET PO PRN ×2 (09:16→16:42)
[2021-05-07] MEDS: APIXABAN 5 MG TABLET PO SCH ×2 (09:16→16:41)
[2021-05-07] MEDS: LANTHANUM CARBONATE 500MG CHEW TABLET PO SCH ×3 (09:18→16:41)
[2021-05-07 11:12] LABS: T4 FREE 1.22 ng/dL (0.76-1.46)
[2021-05-07 12:15] VITALS: BP 102/48
[2021-05-07] MEDS ORDERED: LACTULOSE 20G/30ML UDC PO PRN (13:00)
[2021-05-07 13:18] LABS: PLATELET ESTIMATE NORMAL
[2021-05-07 16:27] VITALS: BP 116/44
[2021-05-07] MEDS: CEFTRIAXONE 1,000 MG in DEXTROSE 5% WATER 50 ML IV SCH (16:41)
[2021-05-07 20:00] VITALS: BP 96/57
[2021-05-08] VITALS (7 sets, daily range): BP systolic 119–136; BP diastolic 51–71
[2021-05-08] MEDS: ACETAMINOPHEN 325MG TABLET PO PRN ×3 (00:06→19:24)
[2021-05-08] MEDS: LEVOTHYROXINE SODIUM 137MCG TABLET PO SCH (06:37)
[2021-05-08] MEDS: BLOOD SUGAR DIAGNOSTIC STRIP TEST SCH ×4 (06:39→20:50)
[2021-05-08] MEDS: INSULIN LISPRO 100 UNITS/ML SUBCUT SCH ×3 (07:50→20:50)
[2021-05-08] MEDS: FAMOTIDINE 20MG TABLET PO SCH (09:50)
[2021-05-08] MEDS: LANTHANUM CARBONATE 500MG CHEW TABLET PO SCH ×3 (09:50→19:24)
[2021-05-08] MEDS: APIXABAN 5 MG TABLET PO SCH ×2 (09:50→19:23)
[2021-05-08] MEDS: AMIODARONE HCL 200 MG TABLET PO SCH (09:51)
[2021-05-08] MEDS: PREDNISONE 20MG TABLET PO SCH (13:25)
[2021-05-08] MEDS: CEFTRIAXONE 1,000 MG in DEXTROSE 5% WATER 50 ML IV SCH (19:23)
[2021-05-08] MEDS: HYDROCODONE/ACETAMINOPHEN 5/325MG TABLET PO PRN (23:27)
[2021-05-09] MEDS: ACETAMINOPHEN 325MG TABLET PO PRN ×2 (03:32→22:34)
[2021-05-09 04:00] VITALS: BP 136/64
[2021-05-09] MEDS: HYDROCODONE/ACETAMINOPHEN 5/325MG TABLET PO PRN ×4 (05:32→18:12)
[2021-05-09] MEDS: LEVOTHYROXINE SODIUM 137MCG TABLET PO SCH (06:23)
[2021-05-09] MEDS: BLOOD SUGAR DIAGNOSTIC STRIP TEST SCH ×4 (06:23→21:00)
[2021-05-09 06:29] LABS: HEMOGLOBIN. 11.4 g/dL (12.0-16.0); MEAN CORPUSCULAR HEMOGLOBIN 29.6 pg (28.0-32.0); MEAN CORPUSCULAR VOLUME 88.7 fL (81.0-99.0); MEAN PLATELET VOLUME 9.5 fl (7.4-10.4); PLATELET 207 x1000/uL (130-400); RED BLOOD CELL COUNT 3.83 mill/uL (4.2-5.4); RED CELL DISTRIBUTION WIDTH 16.3 % (11.6-14.6)
[2021-05-09] MEDS: INSULIN LISPRO 100 UNITS/ML SUBCUT SCH ×4 (07:50→21:00)
[2021-05-09 08:00] VITALS: BP 132/60
[2021-05-09] MEDS: LANTHANUM CARBONATE 500MG CHEW TABLET PO SCH ×3 (08:43→18:12)
[2021-05-09] MEDS: PREDNISONE 20MG TABLET PO SCH (08:43)
[2021-05-09] MEDS: FAMOTIDINE 20MG TABLET PO SCH (08:43)
[2021-05-09] MEDS: APIXABAN 5 MG TABLET PO SCH ×2 (08:43→18:12)
[2021-05-09] MEDS: AMIODARONE HCL 200 MG TABLET PO SCH (08:43)
[2021-05-09 12:00] VITALS: BP 130/62
[2021-05-09 15:48] LABS: PLATELET ESTIMATE NORMAL
[2021-05-09 16:00] VITALS: BP 118/64
[2021-05-09 20:00] VITALS: BP 138/78
[2021-05-09 23:56] VITALS: BP 144/69
[2021-05-10] MEDS: HYDROCODONE/ACETAMINOPHEN 5/325MG TABLET PO PRN ×4 (00:48→22:20)
[2021-05-10 03:37] VITALS: BP 138/67
[2021-05-10] MEDS: ACETAMINOPHEN 325MG TABLET PO PRN (05:06)
[2021-05-10] MEDS: LEVOTHYROXINE SODIUM 137MCG TABLET PO SCH (06:24)
[2021-05-10] MEDS: BLOOD SUGAR DIAGNOSTIC STRIP TEST SCH ×4 (06:24→21:05)
[2021-05-10] MEDS: INSULIN LISPRO 100 UNITS/ML SUBCUT SCH ×4 (07:24→21:00)
[2021-05-10 08:00] VITALS: BP 138/63
[2021-05-10] MEDS: APIXABAN 5 MG TABLET PO SCH ×2 (08:16→17:24)
[2021-05-10] MEDS: FAMOTIDINE 20MG TABLET PO SCH (08:17)
[2021-05-10] MEDS: AMIODARONE HCL 200 MG TABLET PO SCH (08:17)
[2021-05-10] MEDS: PREDNISONE 20MG TABLET PO SCH (08:17)
[2021-05-10] MEDS: LANTHANUM CARBONATE 500MG CHEW TABLET PO SCH ×3 (08:22→17:24)
[2021-05-10 12:00] VITALS: BP 138/57
[2021-05-10 15:56] VITALS: BP 153/76
[2021-05-10] MEDS: IPRATROPIUM/ALBUTEROL 0.5-3(2.5)MG/3ML NEB NEB PRN (18:08)
[2021-05-10 20:00] VITALS: BP 116/57
[2021-05-11] VITALS: BP 145/55
[2021-05-11 04:00] VITALS: BP 133/52
[2021-05-11] MEDS: LEVOTHYROXINE SODIUM 137MCG TABLET PO SCH (05:59)
[2021-05-11] MEDS: HYDROCODONE/ACETAMINOPHEN 5/325MG TABLET PO PRN ×2 (06:09→17:31)
[2021-05-11 07:17] LABS: BASOPHILS % 0.2 % (0.0-2.0); HEMATOCRIT. 38.8 % (36.0-48.0); HEMOGLOBIN. 11.8 g/dL (12.0-16.0); LYMPHOCYTES % 4.1 % (20.0-50.0); MEAN CORPUSCULAR HEMOGLOBIN 28.8 pg (28.0-32.0); MEAN CORPUSCULAR VOLUME 94.7 fL (81.0-99.0); MEAN PLATELET VOLUME 9.8 fl (7.4-10.4); MONOCYTES % 6.1 % (2.0-8.0); NEUTROPHILS % 88.6 % (40.0-76.0); PLATELET 122 x1000/uL (130-400); RED CELL DISTRIBUTION WIDTH 18.1 % (11.6-14.6)
[2021-05-11] MEDS: BLOOD SUGAR DIAGNOSTIC STRIP TEST SCH ×4 (07:23→21:17)
[2021-05-11] MEDS: INSULIN LISPRO 100 UNITS/ML SUBCUT SCH ×4 (07:44→21:19)
[2021-05-11 08:00] VITALS: BP 98/61
[2021-05-11] MEDS: APIXABAN 5 MG TABLET PO SCH ×3 (08:27→17:31)
[2021-05-11] MEDS: FAMOTIDINE 20MG TABLET PO SCH (08:28)
[2021-05-11] MEDS: LANTHANUM CARBONATE 500MG CHEW TABLET PO SCH ×3 (08:28→18:35)
[2021-05-11] MEDS: AMIODARONE HCL 200 MG TABLET PO SCH (08:28)
[2021-05-11 12:00] VITALS: BP 115/58
[2021-05-11] MEDS: PREDNISONE 20MG TABLET PO SCH (13:36)
[2021-05-11 16:00] VITALS: BP 131/84
[2021-05-11 20:00] VITALS: BP 145/76
[2021-05-12] VITALS: BP 158/71
[2021-05-12 04:00] VITALS: BP 141/67
[2021-05-12] MEDS: HYDROCODONE/ACETAMINOPHEN 5/325MG TABLET PO PRN (05:09)
[2021-05-12] MEDS: LEVOTHYROXINE SODIUM 137MCG TABLET PO SCH (06:27)
[2021-05-12] MEDS: ACETAMINOPHEN 325MG TABLET PO PRN (06:28)
[2021-05-12] MEDS: INSULIN LISPRO 100 UNITS/ML SUBCUT SCH ×4 (07:40→20:24)
[2021-05-12 07:45] LABS: HEMATOCRIT. 33.8 % (36.0-48.0); HEMOGLOBIN. 11.2 g/dL (12.0-16.0); MEAN CORPUSCULAR HEMOGLOBIN 29.3 pg (28.0-32.0); MEAN CORPUSCULAR VOLUME 88.2 fL (81.0-99.0); MEAN PLATELET VOLUME 9.1 fl (7.4-10.4); PLATELET 130 x1000/uL (130-400); RED BLOOD CELL COUNT 3.84 mill/uL (4.2-5.4); RED CELL DISTRIBUTION WIDTH 17.2 % (11.6-14.6)
[2021-05-12 08:00] VITALS: BP 139/64
[2021-05-12] MEDS: APIXABAN 5 MG TABLET PO SCH ×2 (08:05→18:44)
[2021-05-12] MEDS: FAMOTIDINE 20MG TABLET PO SCH (08:05)
[2021-05-12] MEDS: PREDNISONE 20MG TABLET PO SCH (08:05)
[2021-05-12] MEDS: LANTHANUM CARBONATE 500MG CHEW TABLET PO SCH ×3 (08:05→18:44)
[2021-05-12] MEDS: AMIODARONE HCL 200 MG TABLET PO SCH (08:05)
[2021-05-12 12:00] VITALS: BP 147/76
[2021-05-12] MEDS: BLOOD SUGAR DIAGNOSTIC STRIP TEST SCH ×3 (12:20→21:27)
[2021-05-12 16:00] VITALS: BP 138/90
[2021-05-12 18:00] LABS: PLATELET ESTIMATE NORMAL
[2021-05-12 20:00] VITALS: BP 95/62
[2021-05-13] VITALS: BP 167/76
[2021-05-13 04:00] VITALS: BP 117/65
[2021-05-13] MEDS ORDERED: LEVOTHYROXINE SODIUM 137MCG TABLET PO SCH (07:20)
[2021-05-13] MEDS: BLOOD SUGAR DIAGNOSTIC STRIP TEST SCH ×4 (07:20→20:19)
[2021-05-13 07:44] VITALS: BP 110/60
[2021-05-13] MEDS: INSULIN LISPRO 100 UNITS/ML SUBCUT SCH ×4 (07:50→20:18)
[2021-05-13 08:17] LABS: HEMATOCRIT. 35.4 % (36.0-48.0); HEMOGLOBIN. 11.9 g/dL (12.0-16.0); MEAN CORPUSCULAR HEMOGLOBIN 29.6 pg (28.0-32.0); MEAN CORPUSCULAR VOLUME 88.4 fL (81.0-99.0); MEAN PLATELET VOLUME 9.4 fl (7.4-10.4); PLATELET 73 x1000/uL (130-400); RED BLOOD CELL COUNT 4.01 mill/uL (4.2-5.4); RED CELL DISTRIBUTION WIDTH 17.1 % (11.6-14.6)
[2021-05-13] MEDS: FAMOTIDINE 20MG TABLET PO SCH (08:58)
[2021-05-13] MEDS: APIXABAN 5 MG TABLET PO SCH (08:58)
[2021-05-13] MEDS: AMIODARONE HCL 200 MG TABLET PO SCH (08:58)
[2021-05-13] MEDS: LANTHANUM CARBONATE 500MG CHEW TABLET PO SCH ×3 (08:59→17:39)
[2021-05-13] MEDS: PREDNISONE 20MG TABLET PO SCH (09:04)
[2021-05-13] MEDS ORDERED: NALOXONE HCL 0.4MG/ML VIAL IV PRN (09:15)
[2021-05-13 12:00] VITALS: BP 125/65
[2021-05-13] MEDS ORDERED: SODIUM POLYSTYRENE SULFONATE 15 G/60 ML BOT PO NR (13:00)
[2021-05-13 16:00] VITALS: BP 121/60
[2021-05-13 17:19] LABS: PLATELET ESTIMATE DECREASED
[2021-05-13] MEDS: DIPHENHYDRAMINE 25MG CAPSULE PO PRN ×2 (17:39→23:43)
[2021-05-13 20:00] VITALS: BP 158/75
[2021-05-13] MEDS: ACETAMINOPHEN 325MG TABLET PO PRN (23:19)
[2021-05-14] VITALS: BP 125/72
[2021-05-14 04:00] VITALS: BP 116/77
[2021-05-14] MEDS: BLOOD SUGAR DIAGNOSTIC STRIP TEST SCH ×4 (06:26→21:00)
[2021-05-14] MEDS: LEVOTHYROXINE SODIUM 125MCG TABLET PO SCH (06:26)
[2021-05-14 06:38] LABS: BASOPHILS % 0.6 % (0.0-2.0); EOSINOPHILS % 0.7 % (0.0-5.0); HEMATOCRIT. 33.4 % (36.0-48.0); HEMOGLOBIN. 10.9 g/dL (12.0-16.0); LYMPHOCYTES % 11.2 % (20.0-50.0); MEAN CORPUSCULAR VOLUME 88.9 fL (81.0-99.0); MONOCYTES % 2.8 % (2.0-8.0); NEUTROPHILS % 84.7 % (40.0-76.0); PLATELET 57 x1000/uL (130-400); RED BLOOD CELL COUNT 3.76 mill/uL (4.2-5.4); RED CELL DISTRIBUTION WIDTH 17.1 % (11.6-14.6)
[2021-05-14] MEDS: INSULIN LISPRO 100 UNITS/ML SUBCUT SCH ×4 (07:41→21:00)
[2021-05-14 08:00] VITALS: BP 98/54
[2021-05-14] MEDS ORDERED: DEXTROSE 50% WATER 50ML SYRINGE IV NR (08:45)
[2021-05-14] MEDS: AMIODARONE HCL 200 MG TABLET PO SCH (09:15)
[2021-05-14] MEDS: FAMOTIDINE 20MG TABLET PO SCH (09:16)
[2021-05-14] MEDS: LANTHANUM CARBONATE 500MG CHEW TABLET PO SCH ×3 (09:16→16:59)
[2021-05-14] MEDS: PREDNISONE 20MG TABLET PO SCH (09:16)
[2021-05-14] MEDS ORDERED: INSULIN REGULAR (HUMULIN R) UD 100 UNITS/ML SYR IV NR (10:00)
[2021-05-14] MEDS ORDERED: CALCIUM CHLORIDE 1,000 MG in DEXT 5% WATER 90 ML IV NR (11:00)
[2021-05-14 12:00] VITALS: BP 121/88
[2021-05-14] MEDS: IPRATROPIUM/ALBUTEROL 0.5-3(2.5)MG/3ML NEB NEB PRN (13:40)
[2021-05-14] MEDS: METHYLPREDNISOLONE SOD SUCC 40 MG/ML VIAL IV SCH ×2 (15:21→22:32)
[2021-05-14 16:11] VITALS: BP 120/87
[2021-05-14] MEDS ORDERED: TRAMADOL 50MG TABLET PO PRN (16:45)
[2021-05-14] MEDS ORDERED: TRAMADOL 50MG TABLET PO ONE (17:00)
[2021-05-14 20:00] VITALS: BP 91/41
[2021-05-14] MEDS: IPRATROPIUM/ALBUTEROL 0.5-3(2.5)MG/3ML NEB NEB SCH (20:33)
[2021-05-15] VITALS: BP 98/47
[2021-05-15] MEDS: IPRATROPIUM/ALBUTEROL 0.5-3(2.5)MG/3ML NEB NEB SCH ×3 (00:46→13:16)
[2021-05-15 04:00] VITALS: BP 110/47
[2021-05-15] MEDS: ACETAMINOPHEN 325MG TABLET PO PRN (05:25)
[2021-05-15] MEDS: METHYLPREDNISOLONE SOD SUCC 40 MG/ML VIAL IV SCH (06:00)
[2021-05-15] MEDS: BLOOD SUGAR DIAGNOSTIC STRIP TEST SCH ×2 (06:38→12:14)
[2021-05-15] MEDS: LEVOTHYROXINE SODIUM 125MCG TABLET PO SCH (06:42)
[2021-05-15] MEDS: INSULIN LISPRO 100 UNITS/ML SUBCUT SCH ×2 (07:50→12:41)
[2021-05-15 08:00] VITALS: BP 93/47
[2021-05-15] MEDS ORDERED: PREDNISONE 20MG TABLET PO SCH (09:00)
[2021-05-15] MEDS ORDERED: MIDODRINE HCL 2.5MG TABLET PO SCH (09:06)
[2021-05-15] MEDS: LANTHANUM CARBONATE 500MG CHEW TABLET PO SCH ×2 (09:49→12:42)
[2021-05-15] MEDS: AMIODARONE HCL 200 MG TABLET PO SCH (09:49)
[2021-05-15] MEDS: FAMOTIDINE 20MG TABLET PO SCH (09:50)
[2021-05-15 12:00] VITALS: BP 125/64
[2021-05-15 14:16] VITALS: BP 125/64
[2021-05-15 17:44] LABS: HEMATOCRIT 27.9 % (36.0-48.0); MEAN CORPUSCULAR VOLUME 89.9 fL (81.0-99.0); PLATELET 54 x1000/uL (130-400); RED CELL DISTRIBUTION WIDTH 17.7 % (11.6-14.6)
== END 2021-05-15 18:19 | DRG 291 ==
LOC: ER 14:27 → MICUSO 04-23 00:26 → 6WST 04-23 14:06
PROVIDERS: ADMIT Internal Medicine; ATTEND Internal Medicine
PROC: 5A1D70Z Performance of Urinary Filtration, Intermittent, Less than 6 Hours Per Day (ICD-10-PCS; 2021-04-23)
PROC: 5A1D70Z Performance of Urinary Filtration, Intermittent, Less than 6 Hours Per Day (ICD-10-PCS; 2021-04-25)
PROC: 5A1D70Z Performance of Urinary Filtration, Intermittent, Less than 6 Hours Per Day (ICD-10-PCS; 2021-04-27)
PROC: 0JBP3ZZ Excision of Left Lower Leg Subcutaneous Tissue and Fascia, Percutaneous Approach (ICD-10-PCS; principal; 2021-04-28)
PROC: 0JBN3ZZ Excision of Right Lower Leg Subcutaneous Tissue and Fascia, Percutaneous Approach (ICD-10-PCS; 2021-04-28)
PROC: 4A10X4Z Monitoring of Central Nervous Electrical Activity, External Approach (ICD-10-PCS; 2021-04-28)
PROC: 5A1D70Z Performance of Urinary Filtration, Intermittent, Less than 6 Hours Per Day (ICD-10-PCS; 2021-04-29)
PROC: 5A1D70Z Performance of Urinary Filtration, Intermittent, Less than 6 Hours Per Day (ICD-10-PCS; 2021-05-01)
PROC: 5A1D70Z Performance of Urinary Filtration, Intermittent, Less than 6 Hours Per Day (ICD-10-PCS; 2021-05-03)
PROC: 5A1D70Z Performance of Urinary Filtration, Intermittent, Less than 6 Hours Per Day (ICD-10-PCS; 2021-05-05)
PROC: 5A1D70Z Performance of Urinary Filtration, Intermittent, Less than 6 Hours Per Day (ICD-10-PCS; 2021-05-08)
PROC: 5A1D70Z Performance of Urinary Filtration, Intermittent, Less than 6 Hours Per Day (ICD-10-PCS; 2021-05-11)
PROC: 5A1D70Z Performance of Urinary Filtration, Intermittent, Less than 6 Hours Per Day (ICD-10-PCS; 2021-05-14)
DX: I13.2 Hypertensive heart and chronic kidney disease with heart failure and with stage 5 chronic kidney disease, or end stage renal disease (principal); J96.00 Acute respiratory failure, unspecified whether with hypoxia or hypercapnia; N18.6 End stage renal disease; G92.8 Other toxic encephalopathy; J44.1 Chronic obstructive pulmonary disease with (acute) exacerbation; E44.1 Mild protein-calorie malnutrition; E87.1 Hypo-osmolality and hyponatremia; Z68.41 Body mass index [BMI] 40.0-44.9, adult; N39.0 Urinary tract infection, site not specified; L97.822 Non-pressure chronic ulcer of other part of left lower leg with fat layer exposed; L97.812 Non-pressure chronic ulcer of other part of right lower leg with fat layer exposed; E11.22 Type 2 diabetes mellitus with diabetic chronic kidney disease; I50.9 Heart failure, unspecified; Z99.2 Dependence on renal dialysis; Z91.15 Patient's noncompliance with renal dialysis; E87.5 Hyperkalemia; R00.1 Bradycardia, unspecified; E66.01 Morbid (severe) obesity due to excess calories; Z20.822 Contact with and (suspected) exposure to COVID-19; D64.9 Anemia, unspecified; D69.6 Thrombocytopenia, unspecified; E11.51 Type 2 diabetes mellitus with diabetic peripheral angiopathy without gangrene; E03.9 Hypothyroidism, unspecified; E78.5 Hyperlipidemia, unspecified; E83.39 Other disorders of phosphorus metabolism; I27.20 Pulmonary hypertension, unspecified; I08.1 Rheumatic disorders of both mitral and tricuspid valves; R44.1 Visual hallucinations; I48.0 Paroxysmal atrial fibrillation; R26.89 Other abnormalities of gait and mobility; X58.XXXA Exposure to other specified factors, initial encounter; Y93.89 Activity, other specified; Y92.89 Other specified places as the place of occurrence of the external cause; Y99.8 Other external cause status; Z82.49 Family history of ischemic heart disease and other diseases of the circulatory system; I25.2 Old myocardial infarction; Z71.3 Dietary counseling and surveillance; R79.89 Other specified abnormal findings of blood chemistry
CPT/HCPCS: 36415; 36600; 70551; 71045; 78580; 80048; 80053; 80061; 81003; 82140; 82270; 82375; 82550; 82553; 82607; 82746; 82805; 82962; 83036; 83605; 83735; 83880; 84100; 84132; 84145; 84439; 84443; 84481; 84484; 85025; 85027; 85379; 86705; 86709; 86803; 87340; 87426; 87804; 93005; 93306; 93923; 94640; 97110; 97162; 97165; 97530; 99291; C1893; J0456; J0461; J0610; J0696; J0885; J1160; J1265; J1644; J1815; J1940; J2920; J2930; J3490; J7060; J7512; Q0163

== ENCOUNTER 2021-05-15 21:25 | Inpatient (IN) | payer MEDICARE, MEDICAID ==
[~2021-05-15] VITALS: Ht 165.1 cm; Wt 100.7 kg
[~2021-05-15 21:25] MED LIST changes: -LEVO250T58 MT
[2021-05-15] MEDS ORDERED: PANTOPRAZOLE SODIUM 40 MG/VIAL IV SCH (22:30)
[2021-05-15 23:26] LABS: HEMATOCRIT. 27.9 % (36.0-48.0); MEAN CORPUSCULAR HEMOGLOBIN 28.8 pg (28.0-32.0); MEAN CORPUSCULAR VOLUME 89.4 fL (81.0-99.0); MEAN PLATELET VOLUME 10.1 fl (7.4-10.4); PLATELET 58 x1000/uL (130-400); RED BLOOD CELL COUNT 3.12 mill/uL (4.2-5.4); RED CELL DISTRIBUTION WIDTH 17.3 % (11.6-14.6)
[2021-05-15 23:31] LABS: CHLORIDE 104 mEq/L (98-107)
[2021-05-15 23:57] LABS: INR 1.1; PROTHROMBIN TIME 11.8 sec (9.6-11.0)
[2021-05-16] VITALS (8 sets, daily range): BP systolic 100–151; BP diastolic 50–86
[2021-05-16] MEDS ORDERED: ALBUTEROL (0.083%) 2.5MG/3ML NEB HHN ONE (01:30)
[2021-05-16] MEDS ORDERED: AZITHROMYCIN 500 MG in DEXT 5% WATER 250 ML IV NR (01:30)
[2021-05-16] MEDS ORDERED: CEFTRIAXONE 1 G PREMIX 50 ML IV NR (01:30)
[2021-05-16 02:42] LABS: PLATELET ESTIMATE DECREASED
[2021-05-16] MEDS ORDERED: ACETAMINOPHEN 500MG TABLET PO ONE (05:00)
[2021-05-16] MEDS ORDERED: IOHEXOL-300 100 ML BOTTLE ONE (06:42)
[2021-05-16] MEDS ORDERED: LORAZEPAM 2MG/ML CPJ IV PRN (07:15)
[2021-05-16] MEDS ORDERED: DEXT 5%/0.45% NACL 1000ML 1,000 ML IV SCH (07:15)
[2021-05-16] MEDS ORDERED: ONDANSETRON HCL 4MG/2ML INJ IV PRN (07:15)
[2021-05-16] MEDS ORDERED: PANTOPRAZOLE SODIUM 40 MG/VIAL IV SCH (09:00)
[2021-05-16] MEDS ORDERED: NALOXONE HCL 0.4MG/ML VIAL IV PRN (11:00)
[2021-05-16 11:16] LABS: HEPATITIS B SURFACE ANTIGEN NEGATIVE
[2021-05-16] MEDS: TRAMADOL 50MG TABLET PO PRN (11:43)
[2021-05-16] MEDS: BLOOD SUGAR DIAGNOSTIC STRIP TEST SCH ×3 (11:56→21:00)
[2021-05-16] MEDS: INSULIN LISPRO 100 UNITS/ML SUBCUT SCH ×3 (12:13→21:00)
[2021-05-16] MEDS: AMIODARONE HCL 200 MG TABLET PO SCH (14:06)
[2021-05-16] MEDS: LEVOTHYROXINE SODIUM 100MCG TABLET PO SCH (14:06)
[2021-05-16] MEDS: PANTOPRAZOLE SODIUM 40 MG/VIAL IV SCH (17:00)
[2021-05-16 20:58] LABS: HEMATOCRIT 26.6 % (36.0-48.0)
[2021-05-16 21:25] LABS: TOTAL IRON BINDING CAPACITY 137 ug/dL (250-450)
[2021-05-16 21:50] LABS: VITAMIN B12 SERUM 1171 pg/mL (211-911)
[2021-05-16 22:33] LABS: FERRITIN > 8250 ng/mL (10-291)
[2021-05-17] VITALS (8 sets, daily range): BP systolic 98–143; BP diastolic 48–89
[2021-05-17 00:38] LABS: HEMATOCRIT 25.2 % (36.0-48.0); HEMOGLOBIN 8.2 g/dL (12.0-16.0)
[2021-05-17] MEDS ORDERED: CEFTRIAXONE 1,000 MG in DEXTROSE 5% WATER 50 ML IV SCH (01:00)
[2021-05-17] MEDS ORDERED: AZITHROMYCIN 500 MG in DEXT 5% WATER 250 ML IV SCH (02:00)
[2021-05-17] MEDS: ACETAMINOPHEN 325MG TABLET PO PRN (03:04)
[2021-05-17 06:10] LABS: CHLORIDE 107 mEq/L (98-107)
[2021-05-17 06:24] LABS: HEMATOCRIT. 24.9 % (36.0-48.0); HEMOGLOBIN. 8.2 g/dL (12.0-16.0); MEAN CORPUSCULAR HEMOGLOBIN 29.1 pg (28.0-32.0); MEAN PLATELET VOLUME 9.4 fl (7.4-10.4); PLATELET 58 x1000/uL (130-400); RED BLOOD CELL COUNT 2.83 mill/uL (4.2-5.4); RED CELL DISTRIBUTION WIDTH 17.4 % (11.6-14.6)
[2021-05-17] MEDS: BLOOD SUGAR DIAGNOSTIC STRIP TEST SCH ×4 (07:30→21:11)
[2021-05-17] MEDS: INSULIN LISPRO 100 UNITS/ML SUBCUT SCH ×4 (08:00→21:00)
[2021-05-17] MEDS: AMIODARONE HCL 200 MG TABLET PO SCH (09:39)
[2021-05-17] MEDS: FUROSEMIDE 20MG TABLET PO SCH (09:39)
[2021-05-17] MEDS: LEVOTHYROXINE SODIUM 100MCG TABLET PO SCH (09:39)
[2021-05-17] MEDS: PANTOPRAZOLE SODIUM 40 MG/VIAL IV SCH ×2 (09:39→17:00)
[2021-05-17 12:31] LABS: HEMATOCRIT 25.7 % (36.0-48.0); HEMOGLOBIN 8.3 g/dL (12.0-16.0)
[2021-05-17 13:43] LABS: PLATELET ESTIMATE MARKEDLY DECREASED
[2021-05-17 20:44] LABS: HEMATOCRIT 22.9 % (36.0-48.0); HEMOGLOBIN 7.8 g/dL (12.0-16.0)
[2021-05-17] MEDS: TRAMADOL 50MG TABLET PO PRN (21:11)
[2021-05-18] VITALS (7 sets, daily range): BP systolic 112–144; BP diastolic 36–77
[2021-05-18 00:35] LABS: HEMATOCRIT 27.7 % (36.0-48.0)
[2021-05-18 06:41] LABS: BASOPHILS % 0.1 % (0.0-2.0); EOSINOPHILS % 1.8 % (0.0-5.0); HEMATOCRIT. 26.4 % (36.0-48.0); HEMOGLOBIN. 8.6 g/dL (12.0-16.0); LYMPHOCYTES % 9.1 % (20.0-50.0); MEAN CORPUSCULAR VOLUME 89.6 fL (81.0-99.0); MEAN PLATELET VOLUME 9.2 fl (7.4-10.4); MONOCYTES % 3.1 % (2.0-8.0); NEUTROPHILS % 85.9 % (40.0-76.0); PLATELET 61 x1000/uL (130-400); RED BLOOD CELL COUNT 2.95 mill/uL (4.2-5.4); RED CELL DISTRIBUTION WIDTH 17.3 % (11.6-14.6)
[2021-05-18] MEDS: INSULIN LISPRO 100 UNITS/ML SUBCUT SCH ×4 (08:00→21:00)
[2021-05-18] MEDS: BLOOD SUGAR DIAGNOSTIC STRIP TEST SCH ×4 (08:21→21:27)
[2021-05-18] MEDS: PANTOPRAZOLE SODIUM 40 MG/VIAL IV SCH ×2 (09:32→17:18)
[2021-05-18] MEDS: LEVOTHYROXINE SODIUM 100MCG TABLET PO SCH (09:32)
[2021-05-18] MEDS: AMIODARONE HCL 200 MG TABLET PO SCH (09:32)
[2021-05-18] MEDS: FUROSEMIDE 20MG TABLET PO SCH (09:32)
[2021-05-18 12:17] LABS: HEMATOCRIT 23.4 % (36.0-48.0); HEMOGLOBIN 7.6 g/dL (12.0-16.0)
[2021-05-18 21:45] LABS: HEMATOCRIT 21.5 % (36.0-48.0); HEMOGLOBIN 7.1 g/dL (12.0-16.0)
[2021-05-19] VITALS (7 sets, daily range): BP systolic 101–125; BP diastolic 35–73
[2021-05-19] MEDS: TRAMADOL 50MG TABLET PO PRN ×2 (00:05→05:50)
[2021-05-19 01:34] LABS: HEMATOCRIT 22.6 % (36.0-48.0); HEMOGLOBIN 7.5 g/dL (12.0-16.0)
[2021-05-19 07:37] LABS: INR 1.1; PROTHROMBIN TIME 12.2 sec (9.6-11.0)
[2021-05-19] MEDS: BLOOD SUGAR DIAGNOSTIC STRIP TEST SCH ×4 (07:40→20:59)
[2021-05-19 07:50] LABS: BASOPHILS % 0.5 % (0.0-2.0); EOSINOPHILS % 4.1 % (0.0-5.0); HEMATOCRIT. 22.6 % (36.0-48.0); HEMOGLOBIN. 7.6 g/dL (12.0-16.0); LYMPHOCYTES % 8.9 % (20.0-50.0); MEAN CORPUSCULAR HEMOGLOBIN 29.3 pg (28.0-32.0); MEAN CORPUSCULAR VOLUME 87.5 fL (81.0-99.0); MEAN PLATELET VOLUME 9.4 fl (7.4-10.4); MONOCYTES % 5.3 % (2.0-8.0); NEUTROPHILS % 81.2 % (40.0-76.0); PLATELET 80 x1000/uL (130-400); RED BLOOD CELL COUNT 2.58 mill/uL (4.2-5.4)
[2021-05-19] MEDS: INSULIN LISPRO 100 UNITS/ML SUBCUT SCH ×4 (08:10→21:00)
[2021-05-19] MEDS: LEVOTHYROXINE SODIUM 100MCG TABLET PO SCH (09:01)
[2021-05-19] MEDS: FUROSEMIDE 20MG TABLET PO SCH (09:01)
[2021-05-19] MEDS: PANTOPRAZOLE SODIUM 40 MG/VIAL IV SCH ×2 (09:02→17:11)
[2021-05-19] MEDS: ACETAMINOPHEN 325MG TABLET PO PRN (12:01)
[2021-05-19] MEDS: AMIODARONE HCL 200 MG TABLET PO SCH (12:01)
[2021-05-20] VITALS (9 sets, daily range): BP systolic 87–120; BP diastolic 49–69
[2021-05-20] MEDS: INSULIN LISPRO 100 UNITS/ML SUBCUT SCH ×4 (06:31→21:00)
[2021-05-20] MEDS: BLOOD SUGAR DIAGNOSTIC STRIP TEST SCH ×4 (06:31→21:30)
[2021-05-20 07:24] LABS: HEMATOCRIT. 27.1 % (36.0-48.0); MEAN CORPUSCULAR HEMOGLOBIN 29.1 pg (28.0-32.0); MEAN CORPUSCULAR VOLUME 87.7 fL (81.0-99.0); MEAN PLATELET VOLUME 9.1 fl (7.4-10.4); PLATELET 99 x1000/uL (130-400); RED BLOOD CELL COUNT 3.09 mill/uL (4.2-5.4); RED CELL DISTRIBUTION WIDTH 16.5 % (11.6-14.6)
[2021-05-20 07:35] LABS: INR 1.2; PROTHROMBIN TIME 12.4 sec (9.6-11.0)
[2021-05-20] MEDS: FUROSEMIDE 20MG TABLET PO SCH (08:46)
[2021-05-20] MEDS: PANTOPRAZOLE SODIUM 40 MG/VIAL IV SCH ×2 (08:46→16:59)
[2021-05-20] MEDS: AMIODARONE HCL 200 MG TABLET PO SCH (08:46)
[2021-05-20] MEDS: LEVOTHYROXINE SODIUM 100MCG TABLET PO SCH (08:46)
[2021-05-20] MEDS: ACETAMINOPHEN 325MG TABLET PO PRN (10:13)
[2021-05-20 16:48] LABS: PLATELET ESTIMATE DECREASED
[2021-05-21] VITALS: BP 138/86
[2021-05-21 04:00] VITALS: BP 129/77
[2021-05-21 06:25] LABS: BASOPHILS % 0.5 % (0.0-2.0); EOSINOPHILS % 5.5 % (0.0-5.0); HEMATOCRIT. 26.2 % (36.0-48.0); HEMOGLOBIN. 8.7 g/dL (12.0-16.0); LYMPHOCYTES % 11.6 % (20.0-50.0); MEAN CORPUSCULAR HEMOGLOBIN 29.3 pg (28.0-32.0); MEAN CORPUSCULAR VOLUME 87.9 fL (81.0-99.0); MEAN PLATELET VOLUME 9.1 fl (7.4-10.4); MONOCYTES % 7.5 % (2.0-8.0); NEUTROPHILS % 74.9 % (40.0-76.0); PLATELET 130 x1000/uL (130-400); RED BLOOD CELL COUNT 2.97 mill/uL (4.2-5.4)
[2021-05-21 06:27] LABS: INR 1.2; PROTHROMBIN TIME 13.2 sec (9.6-11.0)
[2021-05-21] MEDS: BLOOD SUGAR DIAGNOSTIC STRIP TEST SCH ×3 (06:43→16:51)
[2021-05-21] MEDS: INSULIN LISPRO 100 UNITS/ML SUBCUT SCH ×4 (08:01→21:00)
[2021-05-21] MEDS: AMIODARONE HCL 200 MG TABLET PO SCH (08:32)
[2021-05-21] MEDS: FUROSEMIDE 20MG TABLET PO SCH (08:32)
[2021-05-21] MEDS: LEVOTHYROXINE SODIUM 100MCG TABLET PO SCH (08:32)
[2021-05-21] MEDS: PANTOPRAZOLE SODIUM 40 MG/VIAL IV SCH ×2 (08:32→16:51)
[2021-05-21] MEDS: DIPHENHYDRAMINE 50MG/ML VIAL IV PRN (10:02)
[2021-05-21 12:00] VITALS: BP 159/110
[2021-05-21] MEDS: CALCIUM 1250MG TABLET (500MG ELEMENTAL CALCIUM) PO SCH ×2 (14:25→16:52)
[2021-05-21 16:00] VITALS: BP 98/32
[2021-05-21 20:00] VITALS: BP 181/89
[2021-05-21 20:55] LABS: HEMATOCRIT 27.5 % (36.0-48.0); HEMOGLOBIN 9.2 g/dL (12.0-16.0)
[2021-05-21] MEDS: CLONIDINE 0.1MG TABLET PO PRN (21:07)
[2021-05-21] MEDS: ACETAMINOPHEN 325MG TABLET PO PRN (21:07)
[2021-05-21 22:20] VITALS: BP 90/46
[2021-05-22 00:16] VITALS: BP 86/44
[2021-05-22] MEDS: ACETAMINOPHEN 325MG TABLET PO PRN ×2 (01:55→20:34)
[2021-05-22] MEDS: DIPHENHYDRAMINE 50MG/ML VIAL IV PRN (03:04)
[2021-05-22 04:00] VITALS: BP 109/92
[2021-05-22 06:51] LABS: INR 1.3
[2021-05-22 07:03] LABS: BASOPHILS % 0.6 % (0.0-2.0); EOSINOPHILS % 2.9 % (0.0-5.0); HEMATOCRIT. 24.2 % (36.0-48.0); HEMOGLOBIN. 8.2 g/dL (12.0-16.0); LYMPHOCYTES % 14.3 % (20.0-50.0); MEAN CORPUSCULAR HEMOGLOBIN 29.5 pg (28.0-32.0); MEAN CORPUSCULAR VOLUME 86.9 fL (81.0-99.0); MEAN PLATELET VOLUME 8.6 fl (7.4-10.4); MONOCYTES % 7.5 % (2.0-8.0); NEUTROPHILS % 74.7 % (40.0-76.0); PLATELET 130 x1000/uL (130-400); RED BLOOD CELL COUNT 2.78 mill/uL (4.2-5.4); RED CELL DISTRIBUTION WIDTH 16.7 % (11.6-14.6)
[2021-05-22] MEDS: INSULIN LISPRO 100 UNITS/ML SUBCUT SCH ×4 (07:28→20:34)
[2021-05-22 08:01] VITALS: BP 104/41
[2021-05-22] MEDS: CALCIUM 1250MG TABLET (500MG ELEMENTAL CALCIUM) PO SCH ×3 (08:59→17:33)
[2021-05-22] MEDS: LEVOTHYROXINE SODIUM 100MCG TABLET PO SCH (09:00)
[2021-05-22] MEDS: PANTOPRAZOLE SODIUM 40 MG/VIAL IV SCH ×2 (09:00→16:33)
[2021-05-22] MEDS: FUROSEMIDE 20MG TABLET PO SCH (09:00)
[2021-05-22] MEDS: AMIODARONE HCL 200 MG TABLET PO SCH (09:00)
[2021-05-22 10:02] LABS: PHOSPHORUS 3.4 mg/dL (2.5-4.9)
[2021-05-22 12:13] VITALS: BP 100/29
[2021-05-22 15:58] VITALS: BP 88/38
[2021-05-22] MEDS: ALBUTEROL 6.7GM HFA INHALER ORI PRN (17:34)
[2021-05-22 20:00] VITALS: BP 107/52
[2021-05-22] MEDS: BLOOD SUGAR DIAGNOSTIC STRIP TEST SCH (20:33)
[2021-05-23] VITALS: BP 112/70
[2021-05-23] MEDS: ALBUTEROL 6.7GM HFA INHALER ORI PRN ×2 (02:00→21:26)
[2021-05-23 04:00] VITALS: BP 148/77
[2021-05-23] MEDS: BLOOD SUGAR DIAGNOSTIC STRIP TEST SCH ×4 (06:45→21:16)
[2021-05-23] MEDS: DIPHENHYDRAMINE 50MG/ML VIAL IV PRN ×2 (06:46→21:17)
[2021-05-23 08:00] VITALS: BP 101/44
[2021-05-23] MEDS: LEVOTHYROXINE SODIUM 100MCG TABLET PO SCH (08:04)
[2021-05-23] MEDS: FUROSEMIDE 20MG TABLET PO SCH (08:04)
[2021-05-23] MEDS: CALCIUM 1250MG TABLET (500MG ELEMENTAL CALCIUM) PO SCH ×3 (08:04→17:14)
[2021-05-23] MEDS: PANTOPRAZOLE SODIUM 40 MG/VIAL IV SCH ×2 (08:04→17:13)
[2021-05-23] MEDS: AMIODARONE HCL 200 MG TABLET PO SCH (08:04)
[2021-05-23] MEDS: INSULIN LISPRO 100 UNITS/ML SUBCUT SCH ×4 (08:10→21:00)
[2021-05-23 11:36] LABS: BASOPHILS % 0.9 % (0.0-2.0); EOSINOPHILS % 2.8 % (0.0-5.0); HEMATOCRIT. 25.1 % (36.0-48.0); HEMOGLOBIN. 8.2 g/dL (12.0-16.0); LYMPHOCYTES % 11.6 % (20.0-50.0); MEAN CORPUSCULAR HEMOGLOBIN 28.7 pg (28.0-32.0); MEAN CORPUSCULAR VOLUME 88.1 fL (81.0-99.0); MEAN PLATELET VOLUME 8.7 fl (7.4-10.4); MONOCYTES % 6.9 % (2.0-8.0); NEUTROPHILS % 77.8 % (40.0-76.0); PLATELET 137 x1000/uL (130-400); RED BLOOD CELL COUNT 2.85 mill/uL (4.2-5.4); RED CELL DISTRIBUTION WIDTH 16.9 % (11.6-14.6)
[2021-05-23 11:44] LABS: INR 1.4; PROTHROMBIN TIME 14.5 sec (9.6-11.0)
[2021-05-23 12:00] VITALS: BP 97/49
[2021-05-23 16:00] VITALS: BP 137/68
[2021-05-23 20:00] VITALS: BP 99/64
[2021-05-24] VITALS: BP 95/42
[2021-05-24 04:00] VITALS: BP 104/71
[2021-05-24] MEDS: DIPHENHYDRAMINE 50MG/ML VIAL IV PRN ×4 (04:12→22:14)
[2021-05-24] MEDS: BLOOD SUGAR DIAGNOSTIC STRIP TEST SCH ×4 (05:52→21:00)
[2021-05-24] MEDS: INSULIN LISPRO 100 UNITS/ML SUBCUT SCH ×4 (07:34→21:00)
[2021-05-24 07:52] LABS: HEMATOCRIT. 24.6 % (36.0-48.0); HEMOGLOBIN. 8.2 g/dL (12.0-16.0); MEAN CORPUSCULAR HEMOGLOBIN 29.1 pg (28.0-32.0); MEAN PLATELET VOLUME 8.8 fl (7.4-10.4); PLATELET 120 x1000/uL (130-400); RED BLOOD CELL COUNT 2.83 mill/uL (4.2-5.4); RED CELL DISTRIBUTION WIDTH 16.4 % (11.6-14.6)
[2021-05-24 07:55] LABS: INR 1.3; PROTHROMBIN TIME 13.9 sec (9.6-11.0)
[2021-05-24 08:00] VITALS: BP 92/50
[2021-05-24] MEDS: FUROSEMIDE 20MG TABLET PO SCH (08:45)
[2021-05-24] MEDS: AMIODARONE HCL 200 MG TABLET PO SCH (08:46)
[2021-05-24] MEDS: PANTOPRAZOLE SODIUM 40 MG/VIAL IV SCH ×2 (08:46→17:44)
[2021-05-24] MEDS: CALCIUM 1250MG TABLET (500MG ELEMENTAL CALCIUM) PO SCH ×3 (08:46→17:45)
[2021-05-24] MEDS: LEVOTHYROXINE SODIUM 100MCG TABLET PO SCH (08:46)
[2021-05-24] MEDS: ALBUTEROL 6.7GM HFA INHALER ORI PRN (08:47)
[2021-05-24 12:00] VITALS: BP 101/50
[2021-05-24 16:00] VITALS: BP 98/58
[2021-05-24 18:12] LABS: PLATELET ESTIMATE SLIGHTLY DECREASED
[2021-05-24 20:08] VITALS: BP 108/50
[2021-05-25 00:46] VITALS: BP 94/41
[2021-05-25 04:00] VITALS: BP 91/52
[2021-05-25 05:34] LABS: HEMATOCRIT. 26.8 % (36.0-48.0); HEMOGLOBIN. 8.9 g/dL (12.0-16.0); MEAN CORPUSCULAR VOLUME 87.4 fL (81.0-99.0); MEAN PLATELET VOLUME 8.6 fl (7.4-10.4); PLATELET 117 x1000/uL (130-400); RED BLOOD CELL COUNT 3.06 mill/uL (4.2-5.4); RED CELL DISTRIBUTION WIDTH 16.5 % (11.6-14.6)
[2021-05-25 05:36] LABS: INR 1.3; PROTHROMBIN TIME 13.4 sec (9.6-11.0)
[2021-05-25] MEDS: BLOOD SUGAR DIAGNOSTIC STRIP TEST SCH ×4 (05:53→21:00)
[2021-05-25] MEDS: DIPHENHYDRAMINE 50MG/ML VIAL IV PRN ×2 (05:53→12:31)
[2021-05-25] MEDS: ALBUTEROL 6.7GM HFA INHALER ORI PRN (06:02)
[2021-05-25 08:00] VITALS: BP 130/56
[2021-05-25] MEDS: INSULIN LISPRO 100 UNITS/ML SUBCUT SCH ×4 (08:10→21:00)
[2021-05-25] MEDS: PANTOPRAZOLE SODIUM 40 MG/VIAL IV SCH ×2 (08:49→17:59)
[2021-05-25] MEDS: CALCIUM 1250MG TABLET (500MG ELEMENTAL CALCIUM) PO SCH ×3 (08:49→17:59)
[2021-05-25] MEDS: AMIODARONE HCL 200 MG TABLET PO SCH (08:50)
[2021-05-25] MEDS: LEVOTHYROXINE SODIUM 100MCG TABLET PO SCH (08:50)
[2021-05-25] MEDS: FUROSEMIDE 20MG TABLET PO SCH (08:50)
[2021-05-25 12:00] VITALS: BP 116/86
[2021-05-25 13:37] LABS: PLATELET ESTIMATE SLIGHTLY DECREASED
[2021-05-25 16:00] VITALS: BP 109/64
[2021-05-25 20:00] VITALS: BP 113/54
[2021-05-25] MEDS: EPOETIN ALFA-EPBX 4,000 UNIT/ML VIAL SUBCUT SCH (23:26)
[2021-05-26] VITALS (8 sets, daily range): BP systolic 93–135; BP diastolic 46–74
[2021-05-26 06:39] LABS: HEMOGLOBIN. 8.1 g/dL (12.0-16.0); MEAN CORPUSCULAR HEMOGLOBIN 28.7 pg (28.0-32.0); MEAN CORPUSCULAR VOLUME 88.3 fL (81.0-99.0); MEAN PLATELET VOLUME 8.4 fl (7.4-10.4); PLATELET 87 x1000/uL (130-400); RED BLOOD CELL COUNT 2.83 mill/uL (4.2-5.4); RED CELL DISTRIBUTION WIDTH 16.1 % (11.6-14.6)
[2021-05-26] MEDS: BLOOD SUGAR DIAGNOSTIC STRIP TEST SCH ×4 (07:16→20:29)
[2021-05-26] MEDS: INSULIN LISPRO 100 UNITS/ML SUBCUT SCH ×4 (07:16→20:36)
[2021-05-26 08:04] LABS: HEPATITIS B SURFACE ANTIGEN NEGATIVE
[2021-05-26] MEDS: PANTOPRAZOLE SODIUM 40 MG/VIAL IV SCH ×2 (08:07→17:22)
[2021-05-26] MEDS: LEVOTHYROXINE SODIUM 100MCG TABLET PO SCH (08:07)
[2021-05-26] MEDS: CALCIUM 1250MG TABLET (500MG ELEMENTAL CALCIUM) PO SCH ×3 (08:07→17:22)
[2021-05-26] MEDS: AMIODARONE HCL 200 MG TABLET PO SCH (08:07)
[2021-05-26 20:13] LABS: PLATELET ESTIMATE DECREASED
[2021-05-27 04:00] VITALS: BP 111/50
[2021-05-27] MEDS: BLOOD SUGAR DIAGNOSTIC STRIP TEST SCH ×4 (05:51→21:20)
[2021-05-27] MEDS: INSULIN LISPRO 100 UNITS/ML SUBCUT SCH ×4 (05:51→21:00)
[2021-05-27] MEDS: LEVOTHYROXINE SODIUM 100MCG TABLET PO SCH (06:19)
[2021-05-27 07:17] LABS: HEMATOCRIT. 28.8 % (36.0-48.0); HEMOGLOBIN. 9.3 g/dL (12.0-16.0); MEAN CORPUSCULAR HEMOGLOBIN 28.7 pg (28.0-32.0); MEAN CORPUSCULAR VOLUME 89.3 fL (81.0-99.0); MEAN PLATELET VOLUME 8.7 fl (7.4-10.4); PLATELET 92 x1000/uL (130-400); RED BLOOD CELL COUNT 3.23 mill/uL (4.2-5.4); RED CELL DISTRIBUTION WIDTH 16.5 % (11.6-14.6)
[2021-05-27] MEDS: CALCIUM 1250MG TABLET (500MG ELEMENTAL CALCIUM) PO SCH ×3 (07:53→17:04)
[2021-05-27 08:00] VITALS: BP 98/62
[2021-05-27] MEDS: PANTOPRAZOLE SODIUM 40 MG/VIAL IV SCH ×2 (09:05→17:04)
[2021-05-27] MEDS: ZINC SULFATE 220 MG ( 50 ) CAPSULE PO SCH (09:05)
[2021-05-27] MEDS: AMIODARONE HCL 200 MG TABLET PO SCH (09:05)
[2021-05-27] MEDS: ASCORBIC ACID 500 MG TABLET PO SCH (09:06)
[2021-05-27 12:00] VITALS: BP 114/65
[2021-05-27] MEDS: DOCUSATE SODIUM 100MG CAPSULE PO SCH (12:25)
[2021-05-27] MEDS ORDERED: BISACODYL 10MG SUPP PR NR (12:30)
[2021-05-27 16:00] VITALS: BP 94/55
[2021-05-27 16:35] LABS: PLATELET ESTIMATE DECREASED
[2021-05-27] MEDS: ACETAMINOPHEN 325MG TABLET PO PRN (17:04)
[2021-05-27 20:13] VITALS: BP 112/52
[2021-05-27] MEDS: EPOETIN ALFA-EPBX 4,000 UNIT/ML VIAL SUBCUT SCH (22:25)
[2021-05-28] VITALS (8 sets, daily range): BP systolic 90–175; BP diastolic 35–147
[2021-05-28] MEDS: INSULIN LISPRO 100 UNITS/ML SUBCUT SCH ×4 (05:39→21:00)
[2021-05-28] MEDS: CALCIUM 1250MG TABLET (500MG ELEMENTAL CALCIUM) PO SCH ×3 (05:39→17:15)
[2021-05-28] MEDS: BLOOD SUGAR DIAGNOSTIC STRIP TEST SCH ×4 (05:39→21:00)
[2021-05-28] MEDS: LEVOTHYROXINE SODIUM 100MCG TABLET PO SCH (05:39)
[2021-05-28 07:47] LABS: BASOPHILS % 0.6 % (0.0-2.0); EOSINOPHILS % 0.1 % (0.0-5.0); HEMATOCRIT. 26.2 % (36.0-48.0); HEMOGLOBIN. 8.6 g/dL (12.0-16.0); LYMPHOCYTES % 12.9 % (20.0-50.0); MEAN CORPUSCULAR HEMOGLOBIN 28.8 pg (28.0-32.0); MEAN PLATELET VOLUME 8.5 fl (7.4-10.4); MONOCYTES % 5.4 % (2.0-8.0); PLATELET 72 x1000/uL (130-400); RED BLOOD CELL COUNT 2.97 mill/uL (4.2-5.4); RED CELL DISTRIBUTION WIDTH 16.5 % (11.6-14.6)
[2021-05-28] MEDS: PANTOPRAZOLE SODIUM 40 MG/VIAL IV SCH ×2 (09:06→18:27)
[2021-05-28] MEDS: DOCUSATE SODIUM 100MG CAPSULE PO SCH (09:06)
[2021-05-28] MEDS: AMIODARONE HCL 200 MG TABLET PO SCH (09:07)
[2021-05-28] MEDS: ASCORBIC ACID 500 MG TABLET PO SCH (09:07)
[2021-05-28] MEDS: ZINC SULFATE 220 MG ( 50 ) CAPSULE PO SCH (09:07)
[2021-05-28] MEDS: CLONIDINE 0.1MG TABLET PO PRN (18:52)
[2021-05-28] MEDS: ACETAMINOPHEN 325MG TABLET PO PRN (20:50)
[2021-05-29] MEDS ORDERED: CEFTRIAXONE 1,000 MG in DEXTROSE 5% WATER 50 ML IV SCH ×2
[2021-05-29] MEDS ORDERED: VANCOMYCIN 1500MG in DEXTROSE 5% WATER 250ML IV SCH (01:00)
[2021-05-29] MEDS: ALBUTEROL 6.7GM HFA INHALER ORI PRN (02:50)
[2021-05-29] MEDS ORDERED: HETASTARCH/NORMAL SALINE 500 ML PLAST..BAG IV ONE (03:00)
[2021-05-29 03:20] VITALS: BP 61/43
[2021-05-29 03:30] VITALS: BP 89/40
[2021-05-29] MEDS: LEVOTHYROXINE SODIUM 100MCG TABLET PO SCH (06:38)
[2021-05-29] MEDS: CALCIUM 1250MG TABLET (500MG ELEMENTAL CALCIUM) PO SCH ×3 (06:38→18:20)
[2021-05-29] MEDS: BLOOD SUGAR DIAGNOSTIC STRIP TEST SCH ×4 (06:45→21:10)
[2021-05-29 06:50] VITALS: BP 81/40
[2021-05-29] MEDS: INSULIN LISPRO 100 UNITS/ML SUBCUT SCH ×4 (07:15→21:00)
[2021-05-29 07:52] LABS: BASOPHILS % 0.6 % (0.0-2.0); EOSINOPHILS % 1.3 % (0.0-5.0); HEMATOCRIT. 26.3 % (36.0-48.0); HEMOGLOBIN. 8.3 g/dL (12.0-16.0); LYMPHOCYTES % 10.6 % (20.0-50.0); MEAN CORPUSCULAR HEMOGLOBIN 28.5 pg (28.0-32.0); MEAN CORPUSCULAR VOLUME 89.7 fL (81.0-99.0); MEAN PLATELET VOLUME 9.1 fl (7.4-10.4); MONOCYTES % 6.1 % (2.0-8.0); NEUTROPHILS % 81.4 % (40.0-76.0); PLATELET 75 x1000/uL (130-400); RED BLOOD CELL COUNT 2.93 mill/uL (4.2-5.4); RED CELL DISTRIBUTION WIDTH 16.8 % (11.6-14.6)
[2021-05-29 08:00] VITALS: BP 86/40
[2021-05-29] MEDS: DOCUSATE SODIUM 100MG CAPSULE PO SCH (09:00)
[2021-05-29] MEDS ORDERED: IPRATROPIUM/ALBUTEROL 0.5-3(2.5)MG/3ML NEB HHN PRN (09:30)
[2021-05-29] MEDS: MIDODRINE HCL 5MG TABLET PO SCH ×3 (10:06→18:20)
[2021-05-29] MEDS: PANTOPRAZOLE SODIUM 40 MG/VIAL IV SCH ×2 (10:07→18:20)
[2021-05-29] MEDS: ZINC SULFATE 220 MG ( 50 ) CAPSULE PO SCH (10:07)
[2021-05-29] MEDS: ASCORBIC ACID 500 MG TABLET PO SCH (10:07)
[2021-05-29] MEDS: AMIODARONE HCL 200 MG TABLET PO SCH (10:07)
[2021-05-29 12:00] VITALS: BP 92/36
[2021-05-29] MEDS ORDERED: BISACODYL 10MG SUPP PR NR (18:00)
[2021-05-29] MEDS: POLYETHYLENE GLYCOL 3350 (17GM) 1 DOSE PACK PO NR ×2 (18:00→18:23)
[2021-05-29 20:00] VITALS: BP 107/58
[2021-05-29] MEDS: CEFTRIAXONE 1,000 MG in DEXTROSE 5% WATER 50 ML IV SCH (20:11)
[2021-05-29] MEDS: SENNOSIDES 8.6MG TABLET PO SCH (21:10)
[2021-05-29] MEDS: EPOETIN ALFA-EPBX 4,000 UNIT/ML VIAL SUBCUT SCH (21:10)
[2021-05-29] MEDS: ACETAMINOPHEN 325MG TABLET PO PRN (21:10)
[2021-05-30] VITALS (9 sets, daily range): BP systolic 84–102; BP diastolic 32–63
[2021-05-30] MEDS: DEXTROSE 50% WATER 50ML SYRINGE IV PRN (05:57)
[2021-05-30] MEDS: CALCIUM 1250MG TABLET (500MG ELEMENTAL CALCIUM) PO SCH ×3 (06:24→17:36)
[2021-05-30] MEDS: INSULIN LISPRO 100 UNITS/ML SUBCUT SCH ×4 (06:25→21:00)
[2021-05-30] MEDS: LEVOTHYROXINE SODIUM 100MCG TABLET PO SCH (06:25)
[2021-05-30] MEDS: BLOOD SUGAR DIAGNOSTIC STRIP TEST SCH ×4 (06:25→21:08)
[2021-05-30 08:19] LABS: BASOPHILS % 0.8 % (0.0-2.0); EOSINOPHILS % 1.2 % (0.0-5.0); HEMATOCRIT. 24.5 % (36.0-48.0); HEMOGLOBIN. 7.7 g/dL (12.0-16.0); MEAN CORPUSCULAR HEMOGLOBIN 28.6 pg (28.0-32.0); MEAN CORPUSCULAR VOLUME 90.9 fL (81.0-99.0); MEAN PLATELET VOLUME 8.6 fl (7.4-10.4); MONOCYTES % 8.9 % (2.0-8.0); NEUTROPHILS % 77.1 % (40.0-76.0); PLATELET 74 x1000/uL (130-400); RED BLOOD CELL COUNT 2.69 mill/uL (4.2-5.4); RED CELL DISTRIBUTION WIDTH 16.5 % (11.6-14.6)
[2021-05-30 08:27] LABS: INR 1.3; PROTHROMBIN TIME 13.9 sec (9.6-11.0)
[2021-05-30] MEDS: DOCUSATE SODIUM 100MG CAPSULE PO SCH ×2 (09:16→17:35)
[2021-05-30] MEDS: PANTOPRAZOLE SODIUM 40 MG/VIAL IV SCH ×2 (09:16→17:35)
[2021-05-30] MEDS: ASCORBIC ACID 500 MG TABLET PO SCH (09:17)
[2021-05-30] MEDS: MIDODRINE HCL 5MG TABLET PO SCH ×3 (09:18→17:35)
[2021-05-30] MEDS: AMIODARONE HCL 200 MG TABLET PO SCH (09:19)
[2021-05-30] MEDS: ZINC SULFATE 220 MG ( 50 ) CAPSULE PO SCH (09:19)
[2021-05-30] MEDS ORDERED: VANCOMYCIN 1.25GM PMX (XELLIA) 250 ML IV SCH (17:00)
[2021-05-30] MEDS: CEFTRIAXONE 1,000 MG in DEXTROSE 5% WATER 50 ML IV SCH (20:11)
[2021-05-30] MEDS: SENNOSIDES 8.6MG TABLET PO SCH (21:07)
[2021-05-30] MEDS ORDERED: SODIUM CHLORIDE 0.9% 500 ML IV ONE ×2 (23:00→23:15)
[2021-05-31] VITALS (7 sets, daily range): BP systolic 84–101; BP diastolic 35–64
[2021-05-31] MEDS: BLOOD SUGAR DIAGNOSTIC STRIP TEST SCH ×4 (06:13→20:31)
[2021-05-31] MEDS: LEVOTHYROXINE SODIUM 100MCG TABLET PO SCH (06:13)
[2021-05-31] MEDS: CALCIUM 1250MG TABLET (500MG ELEMENTAL CALCIUM) PO SCH ×3 (06:13→18:13)
[2021-05-31] MEDS: INSULIN LISPRO 100 UNITS/ML SUBCUT SCH ×4 (06:13→20:58)
[2021-05-31 07:59] LABS: HEMATOCRIT. 29.4 % (36.0-48.0); HEMOGLOBIN. 9.2 g/dL (12.0-16.0); MEAN CORPUSCULAR HEMOGLOBIN 27.9 pg (28.0-32.0); MEAN CORPUSCULAR VOLUME 89.4 fL (81.0-99.0); MEAN PLATELET VOLUME 8.4 fl (7.4-10.4); PLATELET 73 x1000/uL (130-400); RED BLOOD CELL COUNT 3.29 mill/uL (4.2-5.4)
[2021-05-31 08:03] LABS: INR 1.3; PROTHROMBIN TIME 13.3 sec (9.6-11.0)
[2021-05-31] MEDS: MIDODRINE HCL 5MG TABLET PO SCH ×3 (10:04→18:13)
[2021-05-31] MEDS: AMIODARONE HCL 200 MG TABLET PO SCH (10:04)
[2021-05-31] MEDS: PANTOPRAZOLE SODIUM 40 MG/VIAL IV SCH ×2 (10:04→18:13)
[2021-05-31] MEDS: DOCUSATE SODIUM 100MG CAPSULE PO SCH ×2 (10:04→18:13)
[2021-05-31] MEDS: ASCORBIC ACID 500 MG TABLET PO SCH (10:04)
[2021-05-31] MEDS: ZINC SULFATE 220 MG ( 50 ) CAPSULE PO SCH (10:04)
[2021-05-31 10:30] LABS: PLATELET ESTIMATE DECREASED
[2021-05-31] MEDS ORDERED: HEPARIN SODIUM 1,000 UNIT/1ML VIAL IV NR (15:30)
[2021-05-31] MEDS: DEXTROSE 50% WATER 50ML SYRINGE IV PRN ×2 (18:34→20:46)
[2021-05-31] MEDS: CEFTRIAXONE 1,000 MG in DEXTROSE 5% WATER 50 ML IV SCH (20:31)
[2021-05-31] MEDS: SENNOSIDES 8.6MG TABLET PO SCH ×2 (20:32→21:00)
[2021-06-01] VITALS (50 sets, daily range): BP systolic 48–150; BP diastolic 24–97
[2021-06-01] MEDS: DEXTROSE 50% WATER 50ML SYRINGE IV PRN (06:18)
[2021-06-01] MEDS: LEVOTHYROXINE SODIUM 100MCG TABLET PO SCH (06:45)
[2021-06-01 07:02] LABS: INR 1.3; PROTHROMBIN TIME 14.1 sec (9.6-11.0)
[2021-06-01] MEDS: CALCIUM 1250MG TABLET (500MG ELEMENTAL CALCIUM) PO SCH ×3 (07:15→21:34)
[2021-06-01 07:18] LABS: HEMATOCRIT. 28.7 % (36.0-48.0); MEAN CORPUSCULAR HEMOGLOBIN 28.4 pg (28.0-32.0); MEAN CORPUSCULAR VOLUME 90.2 fL (81.0-99.0); MEAN PLATELET VOLUME 9.4 fl (7.4-10.4); PLATELET 72 x1000/uL (130-400); RED BLOOD CELL COUNT 3.18 mill/uL (4.2-5.4); RED CELL DISTRIBUTION WIDTH 17.7 % (11.6-14.6)
[2021-06-01] MEDS ORDERED: SODIUM CHLORIDE 0.9% 10ML VIAL ONE (07:36)
[2021-06-01] MEDS ORDERED: VECURONIUM BROMIDE 10 MG/VIAL IV ONE (07:36)
[2021-06-01] MEDS ORDERED: ETOMIDATE 2MG/ML 10ML VIAL IV ONE (07:36)
[2021-06-01] MEDS: ASCORBIC ACID 500 MG TABLET PO SCH (09:00)
[2021-06-01] MEDS: MIDODRINE HCL 5MG TABLET PO SCH ×3 (09:00→16:38)
[2021-06-01] MEDS: ZINC SULFATE 220 MG ( 50 ) CAPSULE PO SCH (09:00)
[2021-06-01] MEDS: AMIODARONE HCL 200 MG TABLET PO SCH (09:00)
[2021-06-01] MEDS: DOCUSATE SODIUM 100MG CAPSULE PO SCH ×2 (09:00→17:00)
[2021-06-01] MEDS: PANTOPRAZOLE SODIUM 40 MG/VIAL IV SCH ×2 (10:20→16:34)
[2021-06-01] MEDS ORDERED: PHENYLEPHRINE 50 MG in DEXT 5% WATER 245 ML IV PRN (11:00)
[2021-06-01] MEDS ORDERED: NOREPINEPHRINE 8MG/250ML PMX 250 ML IV PRN (11:00)
[2021-06-01] MEDS ORDERED: ALBUMIN HUMAN 12.5GM/50ML (25%) IV NR (11:00)
[2021-06-01] MEDS ORDERED: NOREPINEPHRINE 8 MG in DEXTROSE 5% WATER 250 ML IV PRN (11:15)
[2021-06-01 11:18] LABS: BG BASE EXCESS 0.1 mmol/L (-2.0-2.0); BG CARBOXYHEMOGLOBIN 0.2 % (0.5-1.5); BG DEOXYHEMOGLOBIN 1.6 % (0.0-5.0); BG FRACTION INSPIRED OXYGEN 100; BG HCO3 ACT 25.3 mmol/L (22.0-26.0); BG METHEMOGLOBIN 0.8 % (0.0-1.5); BG OXYGEN SATURATION 98.4 % (92.0-98.5); BG OXYHEMOGLOBIN 97.4 % (94.0-97.0); BG PCO2 43.5 mmHg (35.0-45.0); BG PH 7.382 (7.350-7.450); BG SAMPLE SITE RIGHT RADIAL; BG TOTAL HEMOGLOBIN 10.4 g/dL (12.0-18.0); BG VENT MODE MASK - NRB
[2021-06-01] MEDS ORDERED: IPRATROPIUM/ALBUTEROL 0.5-3(2.5)MG/3ML NEB HHN PRN (11:45)
[2021-06-01] MEDS: BLOOD SUGAR DIAGNOSTIC STRIP TEST SCH ×2 (12:00→18:00)
[2021-06-01] MEDS: INSULIN LISPRO 100 UNITS/ML SUBCUT SCH ×2 (12:00→18:38)
[2021-06-01] MEDS ORDERED: FENTANYL 2500MCG/250ML PMX 250 ML IV PRN (12:15)
[2021-06-01] MEDS ORDERED: FENTANYL CITRATE 2,500 MCG in SODIUM CHLORIDE 0.9% 200 ML IV PRN (12:15)
[2021-06-01 12:54] LABS: BG BASE EXCESS -2.7 mmol/L (-2.0-2.0); BG CARBOXYHEMOGLOBIN 0.3 % (0.5-1.5); BG DEOXYHEMOGLOBIN 0.9 % (0.0-5.0); BG FRACTION INSPIRED OXYGEN 100; BG HCO3 ACT 23.4 mmol/L (22.0-26.0); BG METHEMOGLOBIN 0.2 % (0.0-1.5); BG OXYGEN SATURATION 99.1 % (92.0-98.5); BG OXYHEMOGLOBIN 98.6 % (94.0-97.0); BG PH 7.324 (7.350-7.450); BG PO2 259.1 mmHg (75.0-100.0); BG SAMPLE SITE RIGHT RADIAL; BG TOTAL HEMOGLOBIN 11.1 g/dL (12.0-18.0); BG VENT MODE VENT - AC
[2021-06-01 13:56] LABS: PLATELET ESTIMATE DECREASED
[2021-06-01] MEDS ORDERED: DOPAMINE 800MG PREMIX (DOUBLE) 250 ML IV PRN (14:30)
[2021-06-01 14:45] LABS: CLARITY URINE TURBID (CLEAR); COLOR URINE DARK YELLOW (YELLOW); KETONES URINE NEGATIVE (NEGATIVE); LEUKOCYTE ESTERASE URINE 3+ (NEGATIVE); NITRITE URINE NEGATIVE (NEGATIVE); OCCULT BLOOD URINE 3+ (NEGATIVE); PROTEIN URINE 1+ (NEGATIVE); SPECIFIC GRAVITY URINE 1.019 (1.005-1.030); UROBILINOGEN URINE 0.2 E.U./dL (0.2-1.0)
[2021-06-01] MEDS ORDERED: CEFEPIME 1,000 MG in DEXTROSE 5% WATER 50 ML IV NR (16:00)
[2021-06-01] MEDS: PHENYLEPHRINE 100 MG in DEXT 5% WATER 240 ML IV PRN ×2 (16:12→21:35)
[2021-06-01] MEDS: VASOPRESSIN 20 UNIT in SODIUM CHLORIDE 0.9% 99 ML IV PRN ×2 (16:13→23:50)
[2021-06-01] MEDS: METRONIDAZOLE 500MG TABLET PO SCH ×2 (16:28→21:33)
[2021-06-01] MEDS: IPRATROPIUM/ALBUTEROL 0.5-3(2.5)MG/3ML NEB HHN SCH ×3 (16:55→19:56)
[2021-06-01] MEDS: NOREPINEPHRINE 32 MG in DEXT 5% WATER 218 ML IV PRN ×2 (18:19→23:44)
[2021-06-01] MEDS: PROPOFOL 10MG/ML 100ML 100 ML IV PRN (18:35)
[2021-06-01] MEDS: SENNOSIDES 8.6MG TABLET PO SCH (21:34)
[2021-06-02] VITALS (44 sets, daily range): BP systolic 68–169; BP diastolic 23–152
[2021-06-02] MEDS: IPRATROPIUM/ALBUTEROL 0.5-3(2.5)MG/3ML NEB HHN SCH ×2 (00:23→04:22)
[2021-06-02] MEDS: ACETAMINOPHEN 325MG TABLET PO PRN (05:56)
[2021-06-02] MEDS: INSULIN LISPRO 100 UNITS/ML SUBCUT SCH ×2 (06:00)
[2021-06-02] MEDS: BLOOD SUGAR DIAGNOSTIC STRIP TEST SCH ×2 (06:02)
[2021-06-02 06:05] LABS: INR 1.4; PROTHROMBIN TIME 14.7 sec (9.6-11.0)
[2021-06-02 06:06] LABS: CHLORIDE 106 mEq/L (98-107); HEMATOCRIT. 32.3 % (36.0-48.0); HEMOGLOBIN. 9.9 g/dL (12.0-16.0); MEAN CORPUSCULAR HEMOGLOBIN 28.5 pg (28.0-32.0); MEAN CORPUSCULAR VOLUME 92.8 fL (81.0-99.0); MEAN PLATELET VOLUME 8.9 fl (7.4-10.4); PLATELET 70 x1000/uL (130-400); RED BLOOD CELL COUNT 3.48 mill/uL (4.2-5.4); RED CELL DISTRIBUTION WIDTH 17.6 % (11.6-14.6)
[2021-06-02] MEDS: PROPOFOL 10MG/ML 100ML 100 ML IV PRN (06:22)
[2021-06-02] MEDS: NOREPINEPHRINE 32 MG in DEXT 5% WATER 218 ML IV PRN (07:58)
[2021-06-02] MEDS: PHENYLEPHRINE 100 MG in DEXT 5% WATER 240 ML IV PRN (07:59)
[2021-06-02] MEDS: PANTOPRAZOLE SODIUM 40 MG/VIAL IV SCH (08:35)
[2021-06-02] MEDS: CALCIUM 1250MG TABLET (500MG ELEMENTAL CALCIUM) PO SCH (08:35)
[2021-06-02] MEDS: ASCORBIC ACID 500 MG TABLET PO SCH (08:35)
[2021-06-02] MEDS: DOCUSATE SODIUM 100MG CAPSULE PO SCH (08:37)
[2021-06-02] MEDS: MIDODRINE HCL 5MG TABLET PO SCH (08:37)
[2021-06-02] MEDS: METRONIDAZOLE 500MG TABLET PO SCH (08:37)
[2021-06-02] MEDS: ZINC SULFATE 220 MG ( 50 ) CAPSULE PO SCH (08:37)
[2021-06-02] MEDS: AMIODARONE HCL 200 MG TABLET PO SCH (08:37)
[2021-06-02] MEDS: LEVOTHYROXINE SODIUM 100MCG TABLET PO SCH (08:37)
[2021-06-02] MEDS ORDERED: MORPHINE SULFATE 250 MG in DEXT 5% WATER 240 ML IV PRN (09:45)
[2021-06-02] MEDS ORDERED: DEXTROSE 50% WATER 50ML SYRINGE IV ONE (12:43)
[2021-06-02] MEDS ORDERED: EPINEPHRINE 0.1MG/ML (1:10,000) 10ML SYR ONE (12:43)
[2021-06-02 13:19] LABS: NUCLEATED RED BLOOD CELLS 6 /100 WBC
[2021-06-02 13:20] LABS: PLATELET ESTIMATE DECREASED
[2021-06-02] MEDS ORDERED: CEFEPIME 500 MG in DEXTROSE 5% WATER 50 ML IV SCH (16:00)
== END 2021-06-02 10:49 | DRG 871 ==
LOC: ER 21:25 → MICUSO 05-16 04:21 → 5EST 05-16 08:10 → 7WST 05-19 01:31 → 5WST 05-26 11:10 → CVICU 06-01 11:06
PROVIDERS: ADMIT Hospitalist; ATTEND Hospitalist
PROC: 5A1D70Z Performance of Urinary Filtration, Intermittent, Less than 6 Hours Per Day (ICD-10-PCS; 2021-05-16)
PROC: 5A1D70Z Performance of Urinary Filtration, Intermittent, Less than 6 Hours Per Day (ICD-10-PCS; 2021-05-19)
PROC: 30233N1 Transfusion of Nonautologous Red Blood Cells into Peripheral Vein, Percutaneous Approach (ICD-10-PCS; principal; 2021-05-20)
PROC: 5A1D70Z Performance of Urinary Filtration, Intermittent, Less than 6 Hours Per Day (ICD-10-PCS; 2021-05-20)
PROC: 5A1D70Z Performance of Urinary Filtration, Intermittent, Less than 6 Hours Per Day (ICD-10-PCS; 2021-05-22)
PROC: 05HY33Z Insertion of Infusion Device into Upper Vein, Percutaneous Approach (ICD-10-PCS; 2021-05-25)
PROC: B54MZZA Ultrasonography of Right Upper Extremity Veins, Guidance (ICD-10-PCS; 2021-05-25)
PROC: 5A1D70Z Performance of Urinary Filtration, Intermittent, Less than 6 Hours Per Day (ICD-10-PCS; 2021-05-26)
PROC: 4A10X4Z Monitoring of Central Nervous Electrical Activity, External Approach (ICD-10-PCS; 2021-05-28)
PROC: 5A1D70Z Performance of Urinary Filtration, Intermittent, Less than 6 Hours Per Day (ICD-10-PCS; 2021-05-28)
PROC: 5A1D80Z Performance of Urinary Filtration, Prolonged Intermittent, 6-18 hours Per Day (ICD-10-PCS; 2021-05-31)
PROC: 5A1935Z Respiratory Ventilation, Less than 24 Consecutive Hours (ICD-10-PCS; 2021-06-01)
PROC: 0BH17EZ Insertion of Endotracheal Airway into Trachea, Via Natural or Artificial Opening (ICD-10-PCS; 2021-06-01)
PROC: 5A12012 Performance of Cardiac Output, Single, Manual (ICD-10-PCS; 2021-06-02)
DX: A41.02 Sepsis due to Methicillin resistant Staphylococcus aureus (principal); L89.153 Pressure ulcer of sacral region, stage 3; U07.1 COVID-19; N18.6 End stage renal disease; E43 Unspecified severe protein-calorie malnutrition; G92.8 Other toxic encephalopathy; J69.0 Pneumonitis due to inhalation of food and vomit; R65.21 Severe sepsis with septic shock; J96.01 Acute respiratory failure with hypoxia; K57.91 Diverticulosis of intestine, part unspecified, without perforation or abscess with bleeding; D62 Acute posthemorrhagic anemia; D68.59 Other primary thrombophilia; I31.3 Pericardial effusion (noninflammatory); I50.32 Chronic diastolic (congestive) heart failure; I13.2 Hypertensive heart and chronic kidney disease with heart failure and with stage 5 chronic kidney disease, or end stage renal disease; J44.0 Chronic obstructive pulmonary disease with (acute) lower respiratory infection; Q21.1 Atrial septal defect; E11.22 Type 2 diabetes mellitus with diabetic chronic kidney disease; E83.42 Hypomagnesemia; D69.6 Thrombocytopenia, unspecified; E03.9 Hypothyroidism, unspecified; E66.01 Morbid (severe) obesity due to excess calories; E78.5 Hyperlipidemia, unspecified; E88.09 Other disorders of plasma-protein metabolism, not elsewhere classified; I25.10 Atherosclerotic heart disease of native coronary artery without angina pectoris; I27.21 Secondary pulmonary arterial hypertension; I48.0 Paroxysmal atrial fibrillation; L89.216 Pressure-induced deep tissue damage of right hip; I46.9 Cardiac arrest, cause unspecified; K76.0 Fatty (change of) liver, not elsewhere classified; R00.1 Bradycardia, unspecified; E87.5 Hyperkalemia; L89.156 Pressure-induced deep tissue damage of sacral region; G25.2 Other specified forms of tremor; K80.20 Calculus of gallbladder without cholecystitis without obstruction; S50.822A Blister (nonthermal) of left forearm, initial encounter; X58.XXXA Exposure to other specified factors, initial encounter; I34.0 Nonrheumatic mitral (valve) insufficiency; I36.1 Nonrheumatic tricuspid (valve) insufficiency; E11.51 Type 2 diabetes mellitus with diabetic peripheral angiopathy without gangrene; Z99.2 Dependence on renal dialysis; I25.2 Old myocardial infarction; Z79.1 Long term (current) use of non-steroidal anti-inflammatories (NSAID); Z79.899 Other long term (current) drug therapy; Z79.01 Long term (current) use of anticoagulants; Z82.49 Family history of ischemic heart disease and other diseases of the circulatory system; Y93.89 Activity, other specified; Y99.8 Other external cause status; Y92.89 Other specified places as the place of occurrence of the external cause; Z68.36 Body mass index [BMI] 36.0-36.9, adult; S81.802A Unspecified open wound, left lower leg, initial encounter; S81.801A Unspecified open wound, right lower leg, initial encounter
CPT/HCPCS: 36415; 36600; 71045; 74177; 76700; 76937; 80048; 80053; 80076; 80202; 81003; 82040; 82140; 82248; 82270; 82375; 82607; 82728; 82746; 82805; 82962; 83540; 83550; 84100; 84134; 84145; 84478; 85014; 85018; 85025; 85044; 86705; 86709; 86803; 86850; 86900; 86920; 87070; 87077; 87186; 87340; 87426; 92610; 93005; 93970; 94640; 95816; 99291; A6261; C1725; C1893; C9113; J0456; J0692; J0696; J0885; J1200; J1644; J1815; J2370; J2704; J3370; J3490; J7040; J7050; J7060; P9016; P9047; Q9967; A4315